=== PATIENT | female | born 1975 | race African-American/Black ===

== ENCOUNTER 2016-10-04 20:43 | Emergency (ER) | payer MEDICAID ==
[~2016-10-04] VITALS: Ht 170.2 cm; Wt 75.0 kg
[~2016-10-04 20:43] MED LIST: CEPH500 PO; IRONCAP2 PO; IRONTAB3 PO; LISI-586 PO
[2016-10-04 20:45] VITALS: BP 139/95; PULSE 105; RESP 16; TEMP 98.5; O2SAT 98
[2016-10-04] MEDS ORDERED: HYDR12.57 PO (21:26)
[2016-10-04] MEDS ORDERED: LISI-515 PO (21:26)
[2016-10-04] MEDS ORDERED: SODIUM CHLORIDE 0.9% FLUSH 10 ML FLUSH IVF PRN (21:30)
[2016-10-04] MEDS ORDERED: KETOROLAC TROMETHAMINE 30 MG/ML (IVP) VIAL IVP ONE (21:30)
[2016-10-04 21:59] LABS: AUTOMATED NEUTROPHIL # 6.6 TH/MM3 (1.8-7.7); BASOPHIL % 0.5 % (0.0-2.0); EOSINOPHIL # 0.1 TH/MM3 (0-0.4); EOSINOPHIL % 1.5 % (0.0-4.0); HEMATOCRIT 37.4 % (35.0-46.0); HEMO FLAGS DIFF FINAL; LYMPH % 15.4 % (9.0-44.0); LYMPHOCYTE # 1.3 TH/MM3 (1.0-4.8); MEAN CELL VOLUME 82.1 FL (80.0-100.0); MEAN CORPUSCULAR HEMOGLOBIN 26.4 PG (27.0-34.0); MEAN CORPUSCULAR HGB CONC 32.2 % (32.0-36.0); MONO % 4.3 % (0.0-8.0); NEUT % 78.3 % (16.0-70.0); PLATELET COUNT 316 TH/MM3 (150-450); RED BLOOD COUNT 4.55 MIL/MM3 (4.00-5.30); RED CELL DISTRIBUTION WIDTH 14.5 % (11.6-17.2); WHITE BLOOD COUNT 8.5 TH/MM3 (4.0-11.0)
[2016-10-04 22:10] LABS: APTT (PATIENT) 32.6 SEC (24.3-30.1); INTERNATIONAL NORMALIZED RATIO 0.9 RATIO; PROTHROMBIN TIME - PATIENT 9.7 SEC (9.8-11.6)
[2016-10-04 22:19] LABS: BICARBONATE 27.4 MEQ/L (21.0-32.0); POTASSIUM 3.1 MEQ/L (3.5-5.1)
[2016-10-04] MEDS ORDERED: MORPHINE SULFATE 8 MG/ML INJ IV PUSH ONE (22:30)
--- NOTE | 2016-10-04 22:39 | PD ---
HPI Chief Complaint: Pain: Acute or Chronic Time Seen by Provider: 21:30 Travel History International Travel<30 days: No Contact w/Intl Traveler<30days: No Traveled to known affect area: No History of Present Illness HPI Patient is a 40-year-old female presenting to emergency for evaluation of right arm pain and swelling. Patient states it started yesterday, it has gotten progressively more erythematous and painful. She reports the pain as a 9 out of 10, she denies any fever, chills, numbness, weakness. She does have a history of blood clots several years ago, she does not know if she was on blood thinners. Past medical history significant for hypertension, asthma, anemia. She denies any IV drug use. PFSH Past Medical History Hx Anticoagulant Therapy: No Anemia: Yes Asthma: Yes Cardiovascular Problems: Yes (HTN, Anemia) Diminished Hearing: No Hypertension: Yes Respiratory: Yes (Asthma) ?: Not LMP: 10/04/16 Menopausal: No : 2 Para: 2 Miscarriage: 0 : 0 Tubal Ligation: Yes (2003) Past Surgical History Abdominal Surgery: Yes (hernia at 10 months old) Thoracic Surgery: Yes (BACK SURGERY 2013) Social History Alcohol Use: No Tobacco Use: Yes (/2 PPD ) Substance Use: No Allergies-Medications (Allergen,Severity, Reaction): Coded Allergies: No Known Allergies (Verified , 10/04/16) Reported Meds & Prescriptions Reported Meds & Active Scripts Active Tramadol (Tramadol HCl) 50 Mg Tab 50 Mg PO Q6H PRN Florastor (Saccharomyces Boulardii) 250 Mg Cap 250 Mg PO BID 10 Days Clindamycin (Clindamycin HCl) 150 Mg Cap 300 Mg PO Q8HR 10 Days Reported Hydrochlorothiazide 12.5 Mg Cap 12.5 Mg PO DAILY Lisinopril 20 Mg Tab 20 Mg PO DAILY Review of Systems Except as stated in HPI: all other systems reviewed are Neg General / Constitutional: No: Fever, Chills Musculoskeletal: Positive: Edema, Pain Skin: Positive Change in Pigmentation Physical Exam Narrative GENERAL: Well-developed, well-nourished, alert female. Appears uncomfortable, in no acute distress. SKIN: Warm and dry. Right upper arm posteriorly with erythema and edema that extends distal to the right elbow, it is approximately 7 cm wide by 17 cm long. Warm to the touch, tender to palpation. No obvious lesions or excoriations. HEAD: Atraumatic. Normocephalic. EYES: Pupils equal and round. No scleral icterus. No injection or drainage. ENT: No nasal bleeding or discharge. Mucous membranes pink and moist. NECK: Trachea midline. No JVD. CARDIOVASCULAR: Regular rate and rhythm. RESPIRATORY: No accessory muscle use. Clear to auscultation. Breath sounds equal bilaterally. GASTROINTESTINAL: Abdomen soft, non-tender, nondistended. Hepatic and splenic margins not palpable. MUSCULOSKELETAL: Extremities without clubbing, cyanosis, or edema. No obvious deformities. NEUROLOGICAL: Awake and alert. No obvious cranial nerve deficits. Motor grossly within normal limits. Five out of 5 muscle strength in the arms and legs. Normal speech. PSYCHIATRIC: Appropriate mood and affect; insight and judgment normal. Data Data Last Documented VS Vital Signs Date Time Temp Pulse Resp B/P Pulse Ox O2 Delivery O2 Flow Rate FiO2 10/04/16 23:46 97 16 135/64 97 10/04/16 20:45 98.5 Orders Us Arm Venous Doppler (10/04/16 ) Basic Metabolic Panel (Bmp) (10/04/16 21:26) Complete Blood Count With Diff (10/04/16 21:26) Blood Culture (10/04/16 21:26) Ketorolac Inj (Toradol Inj) (10/04/16 21:30) Sodium Chloride 0.9% Flush (Ns Flush) (10/04/16 21:30) Act Partial Throm Time (Ptt) (10/04/16 21:26) Prothrombin Time / Inr (Pt) (10/04/16 21:26) Morphine Inj (Morphine Inj) (10/04/16 22:30) Ceftriaxone Inj (Rocephin Inj) (10/04/16 23:00) Clindamycin Inj (Cleocin Inj) (10/04/16 23:00) Potassium Chloride (Kcl) (10/04/16 23:00) Diphenhydramine Inj (Benadryl Inj) (10/04/16 23:00) Labs Laboratory Tests Test 10/04/16 21:44 White Blood Count 8.5 TH/MM3 Red Blood Count 4.55 MIL/MM3 Hemoglobin 12.0 GM/DL Hematocrit 37.4 % Mean Corpuscular Volume 82.1 FL Mean Corpuscular Hemoglobin 26.4 PG Mean Corpuscular Hemoglobin 32.2 % Concent Red Cell Distribution Width 14.5 % Platelet Count 316 TH/MM3 Mean Platelet Volume 8.1 FL Neutrophils (%) (Auto) 78.3 % Lymphocytes (%) (Auto) 15.4 % Monocytes (%) (Auto) 4.3 % Eosinophils (%) (Auto) 1.5 % Basophils (%) (Auto) 0.5 % Neutrophils # (Auto) 6.6 TH/MM3 Lymphocytes # (Auto) 1.3 TH/MM3 Monocytes # (Auto) 0.4 TH/MM3 Eosinophils # (Auto) 0.1 TH/MM3 Basophils # (Auto) 0.0 TH/MM3 CBC Comment DIFF FINAL Differential Comment Prothrombin Time 9.7 SEC Prothromb Time International 0.9 RATIO Ratio Activated Partial 32.6 SEC Thromboplast Time Sodium Level 138 MEQ/L Potassium Level 3.1 MEQ/L Chloride Level 105 MEQ/L Carbon Dioxide Level 27.4 MEQ/L Anion Gap 6 MEQ/L Blood Urea Nitrogen 14 MG/DL Creatinine 1.23 MG/DL Estimat Glomerular Filtration 58 ML/MIN Rate Random Glucose 98 MG/DL Calcium Level 8.6 MG/DL [facility] Medical Decision Making Medical Screen Exam Complete: Yes Emergency Medical Condition: Yes Interpretation(s) Vital Signs Date Time Temp Pulse Resp B/P Pulse Ox O2 Delivery O2 Flow Rate FiO2 10/04/16 21:23 16 10/04/16 20:45 98.5 105 16 139/95 98 Differential Diagnosis Cellulitis versus DVT versus allergic reaction versus other Narrative Course Patient is a 40-year-old female presenting for evaluation of 2 days of right arm swelling, pain and redness. Patient's physical examination appears most consistent with cellulitis however due to her history of DVT and ultrasound of the right upper extremity is ordered and pending. Patient's vital signs are stable. CBC unremarkable, lactic acid is normal, chemistry with potassium 3.1, creatinine 1.23. Patient was given 1 L of IV fluids in the emergency department , clindamycin 900 mg IV 1 dose given. Ultrasound right upper extremity is negative for DVT. Potassium replacement ordered. Blood cultures pending. Area of induration was marked, patient was given strict return precautions. She was advised to return to the emergency department in 24 hours for reevaluation. Patient verbalized understanding of these instructions. Diagnosis Primary Impression: Cellulitis of arm, right Referrals: Primary Care Physician 1 day Patient Instructions: Cellulitis (DC), General Instructions Additional Instructions: Return to emergency department in 48 hours for reevaluation Return to emergency department sooner for any new or worsening symptoms Complete full course of antibiotics as prescribed Med/Other Pt SpecificInfo: Prescription(s) given Scripts Tramadol 50 Mg Tab50 Mg PO Q6H PRN (PAIN) #12 TAB Ref 0 Prov:Stewart Montoya MD 10/04/16 Saccharomyces Boulardii (Florastor)250 Mg [id number] Mg PO BID 10 Days Ref 0 Prov:Ekta Sanz 10/04/16 Clindamycin 150 Mg [id number] Mg PO Q8HR 10 Days Ref 0 Prov:Ekta Sanz 10/04/16 Disposition: 01 DISCHARGE HOME Condition: Stable Ekta Sanz Oct 04, 2016 22:39
--- NOTE | 2016-10-04 22:43 | RADRPT ---
EXAM DATE/TIME: 10/04/2016 22:10 [place] COMPARISON: No previous studies available for comparison. INDICATIONS : Right arm swelling. MEDICAL HISTORY : Hypertension. Anemia. SURGICAL HISTORY : Tubal ligation. Back surgery. Hernia repair. ENCOUNTER: Initial ACUITY: 1 day PAIN SCORE: 10/10 LOCATION: Right arm. FINDINGS: There is spontaneous flow documented in the brachial, basilic, cephalic, axillary, and subclavian vei ns. The vessels are compressible and augmentation response is documented. No filling defects are se en. The flow is phasic with respiration. Direction of flow in the jugular vein is caudal. CONCLUSION: Normal examination. Lucas Brenner MD on October 04, 2016 at 22:41 Board Certified Radiologist. This report was verified electronically.
[2016-10-04] MEDS ORDERED: FLOR250C PO (22:52)
[2016-10-04] MEDS ORDERED: CLIN1CAP5 PO (22:52)
[2016-10-04] MEDS ORDERED: TRAM50TA PO (22:53)
[2016-10-04] MEDS ORDERED: diphenhydrAMINE HCL 50 MG/ML VIAL IV PUSH ONE (23:00)
[2016-10-04] MEDS ORDERED: POTASSIUM CHLORIDE 10 MEQ CONTROLLED RELEASE TAB PO ONE (23:00)
[2016-10-04] MEDS ORDERED: CLINDAMYCIN INJ 900 MG in SODIUM CHLORIDE 0.9% INJ 100 ML IV ONE (23:00)
[2016-10-04] MEDS ORDERED: cefTRIAXone INJ 1,000 MG in SODIUM CHLORIDE 0.9% INJ 100 ML IV ONE (23:00)
--- NOTE | 2016-10-04 23:18 | PD ---
Data Data Last Documented VS Vital Signs Date Time Temp Pulse Resp B/P Pulse Ox O2 Delivery O2 Flow Rate FiO2 10/04/16 21:23 16 10/04/16 20:45 98.5 105 139/95 98 Orders Us Arm Venous Doppler (10/04/16 ) Basic Metabolic Panel (Bmp) (10/04/16 21:26) Complete Blood Count With Diff (10/04/16 21:26) Blood Culture (10/04/16 21:26) Ketorolac Inj (Toradol Inj) (10/04/16 21:30) Sodium Chloride 0.9% Flush (Ns Flush) (10/04/16 21:30) Act Partial Throm Time (Ptt) (10/04/16 21:26) Prothrombin Time / Inr (Pt) (10/04/16 21:26) Morphine Inj (Morphine Inj) (10/04/16 22:30) Ceftriaxone Inj (Rocephin Inj) (10/04/16 23:00) Clindamycin Inj (Cleocin Inj) (10/04/16 23:00) Potassium Chloride (Kcl) (10/04/16 23:00) Diphenhydramine Inj (Benadryl Inj) (10/04/16 23:00) Labs Laboratory Tests Test 10/04/16 21:44 White Blood Count 8.5 TH/MM3 Red Blood Count 4.55 MIL/MM3 Hemoglobin 12.0 GM/DL Hematocrit 37.4 % Mean Corpuscular Volume 82.1 FL Mean Corpuscular Hemoglobin 26.4 PG Mean Corpuscular Hemoglobin 32.2 % Concent Red Cell Distribution Width 14.5 % Platelet Count 316 TH/MM3 Mean Platelet Volume 8.1 FL Neutrophils (%) (Auto) 78.3 % Lymphocytes (%) (Auto) 15.4 % Monocytes (%) (Auto) 4.3 % Eosinophils (%) (Auto) 1.5 % Basophils (%) (Auto) 0.5 % Neutrophils # (Auto) 6.6 TH/MM3 Lymphocytes # (Auto) 1.3 TH/MM3 Monocytes # (Auto) 0.4 TH/MM3 Eosinophils # (Auto) 0.1 TH/MM3 Basophils # (Auto) 0.0 TH/MM3 CBC Comment DIFF FINAL Differential Comment Prothrombin Time 9.7 SEC Prothromb Time International 0.9 RATIO Ratio Activated Partial 32.6 SEC Thromboplast Time Sodium Level 138 MEQ/L Potassium Level 3.1 MEQ/L Chloride Level 105 MEQ/L Carbon Dioxide Level 27.4 MEQ/L Anion Gap 6 MEQ/L Blood Urea Nitrogen 14 MG/DL Creatinine 1.23 MG/DL Estimat Glomerular Filtration 58 ML/MIN Rate Random Glucose 98 MG/DL Calcium Level 8.6 MG/DL MDM Supervised Visit with SIMRAN: Yes Narrative Course The history, exam, and medical decision-making in the associated mid-level provider note were completed with my assistance. I reviewed and agree with the findings presented. I attest that I had a [id number] encounter with the patient on the same day, and personally performed and documented my assessment and findings in the medical record. *My assessment and Findings: Is a 40 year-old woman presents to the emergency department. He was a cellulitis in the right arm. Is fairly extensive. She is induration and tenderness on the underside of the arm. No fever. No white count. Negative for DVT. No clear precipitant. She is given IV antibiotics will bring her back for 24-hour wound check to skin how quickly this came on. I'll see any crepitance or other evidence of necrotizing acute soft tissue infection. Diagnosis Primary Impression: Cellulitis of arm, right Referrals: Primary Care Physician 1 day Patient Instructions: General Instructions, Cellulitis (DC) Additional Instruction: Return to emergency department in 48 hours for reevaluation Return to emergency department sooner for any new or worsening symptoms Complete full course of antibiotics as prescribed Scripts Tramadol 50 Mg Tab50 Mg PO Q6H PRN (PAIN) #12 TAB Ref 0 Prov:Stewart Montoya MD 10/04/16 Saccharomyces Boulardii (Florastor)250 Mg Ocm191 Mg PO BID 10 Days Ref 0 Prov:Ekta Snaz 10/04/16 Clindamycin 150 Mg Vin667 Mg PO Q8HR 10 Days Ref 0 Prov:Ekta Sanz 10/04/16 Disposition: 01 DISCHARGE HOME Condition: Stable Stewart Montoya MD Oct 04, 2016 23:18
[2016-10-04 23:46] VITALS: BP 135/64
== END 2016-10-05 00:05 | disposition home or self-care (01) ==
LOC: NEPE 20:43
DX: L03.113 Cellulitis of right upper limb (principal)
CPT/HCPCS: 80048; 85025; 85610; 85730; 87040; 93971; 96374; 96375; 99285; J1200; J1885; J2270

== ENCOUNTER 2016-10-07 18:57 | Emergency (ER) | payer MEDICAID ==
[~2016-10-07] VITALS: Ht 170.2 cm; Wt 76.0 kg
[~2016-10-07 18:57] MED LIST changes: -CEPH500 PO; +CLIN1CAP5 PO; +FLOR250C PO; +HYDR12.57 PO; -IRONCAP2 PO; -IRONTAB3 PO; +LISI-515 PO; -LISI-586 PO; +TRAM50TA PO
[2016-10-07 19:01] VITALS: BP 117/79; PULSE 68; RESP 15; TEMP 98.2; O2SAT 98
--- NOTE | 2016-10-07 19:12 | PD ---
Physical Exam Time Seen by Provider: 19:10 Narrative 40 y/o female was dx with cellulitis RUE 10/04 and is here for reevaluation. She says symptoms are improving. Vital signs reviewed. Seen at triage desk. Awaiting bed placement. Data Data Last Documented VS Vital Signs Date Time Temp Pulse Resp B/P Pulse Ox O2 Delivery O2 Flow Rate FiO2 10/07/16 19:01 98.2 68 15 117/79 98 Room Air [facility] Medical Record Reviewed: Yes Supervised Visit with SIMRAN: No Neto Hernandez Oct 07, 2016 19:11
--- NOTE | 2016-10-07 19:25 | PD ---
HPI Chief Complaint: Skin Problem Time Seen by Provider: 19:21 Travel History International Travel<30 days: No Contact w/Intl Traveler<30days: No Traveled to known affect area: No History of Present Illness HPI Patient in for reevaluation of right arm cellulitis. Patient she started antibiotics yesterday after receiving IV antibiotics in the emergency department. Patient reports great improvement of her symptoms. States pain, edema, and erythematous have all improved. She denies any fevers, nausea, vomiting, chest pain or shortness of breath, or headaches. Denies anything making it worse. PFSH Past Medical History Hx Anticoagulant Therapy: No Anemia: Yes Asthma: Yes Cardiovascular Problems: Yes (HTN, Anemia) Diminished Hearing: No Hypertension: Yes Respiratory: Yes (Asthma) ?: Not Menopausal: No : 2 Para: 2 Miscarriage: 0 : 0 Tubal Ligation: Yes (2003) Past Surgical History Abdominal Surgery: Yes (hernia at 10 months old) Thoracic Surgery: Yes (BACK SURGERY 2013) Social History Alcohol Use: No Tobacco Use: Yes (03/22 PPD ) Substance Use: No Allergies-Medications (Allergen,Severity, Reaction): Coded Allergies: No Known Allergies (Verified , 10/04/16) Reported Meds & Prescriptions Reported Meds & Active Scripts Active Tramadol (Tramadol HCl) 50 Mg Tab 50 Mg PO Q6H PRN Florastor (Saccharomyces Boulardii) 250 Mg Cap 250 Mg PO BID 10 Days Clindamycin (Clindamycin HCl) 150 Mg Cap 300 Mg PO Q8HR 10 Days Reported Hydrochlorothiazide 12.5 Mg Cap 12.5 Mg PO DAILY Lisinopril 20 Mg Tab 20 Mg PO DAILY Review of Systems Except as stated in HPI: all other systems reviewed are Neg Physical Exam Narrative GENERAL: Well-developed, well nourished, in no acute distress, and non-ill appearing. SKIN: Focused skin assessment warm and dry. Mild erythematous and febrile right posterior forearm. There is no induration, fluctuation, tenderness, or crepitus. HEAD: Atraumatic. Normocephalic. EYES: Pupils equal and round. EOMI. No scleral icterus. No injection or drainage. ENT: No nasal bleeding or discharge. Mucous membranes pink and moist. NECK: Trachea midline. Supple. No nuclear rigidity. CARDIOVASCULAR: Radial pulses 2+, intact, and equal bilaterally. Capillary refill less than 2 seconds. RESPIRATORY: No accessory muscle use. No respiratory distress. MUSCULOSKELETAL: No obvious deformities. No clubbing. No cyanosis. No edema. Full range of motion. NEUROLOGICAL: Awake and alert. No obvious cranial nerve deficits. Motor grossly within normal limits. Normal speech. PSYCHIATRIC: Appropriate mood and affect; insight and judgment normal. Data Data Last Documented VS Vital Signs Date Time Temp Pulse Resp B/P Pulse Ox O2 Delivery O2 Flow Rate FiO2 10/07/16 19:01 98.2 68 15 117/79 98 Room Air MDM Medical Decision Making Medical Screen Exam Complete: Yes Emergency Medical Condition: Yes Differential Diagnosis Abscess, cyanosis, wound recheck, other Narrative Course The patient has cellulitis is resolving. There is no evidence of necrotizing fasciitis at this time. There is no evidence of abscess. There is no evidence of local joint space involvement. There is no evidence of deep venous thrombosis. The patient will be discharged and instructed to continue antibiotics. The patient was given signs and symptoms warnings for worsening infection, such as spreading of redness, increasing pain, and/or swelling, associated heat, or fever and instructed to return immediately if these signs or symptoms worsen. The patient is to follow up with physician for recheck or return here if worsens or as needed. The patient agrees with plan. Patient in no obvious distress upon re-evaluation. Any questions/concerns in reference to patient diagnosis/condition discussed and clarified prior to patient's discharge. Reinforced sheer importance of close follow up with patient 's primary physician or primary care clinic. Instructed patient to return to ED immediately, if symptoms return/worsen. Pt showed understanding of above instructions. Further instructions and recommendations were detailed in discharge paperwork. Pt ambulated without difficulty out of ED at discharge. Diagnosis Primary Impression: Encounter for wound re-check Additional Impression: Cellulitis of arm, right Referrals: [facility] Patient Instructions: Cellulitis (ED), General Instructions Additional Instructions: Follow-up with your primary care physician in 3-5 days for reevaluation. Take all medication as previously prescribed. Return to the emergency department if symptoms get worse, fevers, unable tolerate fluids, chest pain, shortness of breath, or for other emergent concerns. Disposition: 01 DISCHARGE HOME Condition: Stable Joey Pepe Oct 07, 2016 19:25
== END 2016-10-07 19:38 | disposition home or self-care (01) ==
LOC: NEPK 18:57
DX: L03.113 Cellulitis of right upper limb (principal)
CPT/HCPCS: 99281

== ENCOUNTER 2017-01-08 23:50 | Observation (INO) | payer MEDICAID ==
[~2017-01-08] VITALS: Ht 170.2 cm; Wt 83.0 kg
[2017-01-08 23:51] VITALS: BP 109/64; PULSE 165; RESP 18; TEMP 99.2; O2SAT 97
[2017-01-09] VITALS (9 sets, daily range): BP systolic 132–161; BP diastolic 80–106; PULSE 68–140; RESP 16–22; TEMP 97.9–98.6; O2SAT 96–100
[2017-01-09] MEDS ORDERED: SODIUM CHLOR 0.9% 1000 ML INJ 1,000 ML IV ONE
[2017-01-09] MEDS ORDERED: SODIUM CHLORIDE 0.9% FLUSH 10 ML FLUSH IVF PRN
--- NOTE | 2017-01-09 00:03 | PD ---
HPI Chief Complaint: palpitations, presyncope Time Seen by Provider: 23:56 Travel History International Travel<30 days: No Contact w/Intl Traveler<30days: No History of Present Illness HPI Patient is a 41-year-old female with history of high blood pressure anemia and rapid heart rate events in the past presents emergency Department with palpitations for the past 30-45 minutes. She states that this happened to her once before. She states that she also has a history of anemia and heavy bleeding. She's had to have blood transfusions in the past. States his symptoms are very uncomfortable but she also feels like she was going to pass out. Denies any fever denies any cough congestion. Denies any history of heart attack. PFSH Past Medical History Hx Anticoagulant Therapy: No Anemia: Yes Asthma: Yes Cardiovascular Problems: Yes (HTN, Anemia) Diminished Hearing: No Hypertension: Yes Respiratory: Yes (Asthma) Menopausal: No : 2 Para: 2 Miscarriage: 0 : 0 Tubal Ligation: Yes (2003) Past Surgical History Abdominal Surgery: Yes (hernia at 10 months old) Thoracic Surgery: Yes (BACK SURGERY 2013) Social History Alcohol Use: No Tobacco Use: No Substance Use: No Allergies-Medications (Allergen,Severity, Reaction): Coded Allergies: No Known Allergies (Verified , 01/09/17) Reported Meds & Prescriptions Reported Meds & Active Scripts Active Reported Hydrochlorothiazide 12.5 Mg Cap 12.5 Mg PO DAILY Lisinopril 20 Mg Tab 20 Mg PO DAILY Review of Systems Except as stated in HPI: all other systems reviewed are Neg Physical Exam Narrative GENERAL: Well-developed well-nourished no obvious distress SKIN: Focused skin assessment warm/dry. HEAD: Atraumatic. Normocephalic. EYES: Pupils equal and round. No scleral icterus. No injection or drainage. ENT: No nasal bleeding or discharge. Mucous membranes pink and moist. NECK: Trachea midline. No JVD. CARDIOVASCULAR: Significantly tachycardic with regular rhythm.. No murmur appreciated. 2+ bilateral equal pulses in all 4 extremities. RESPIRATORY: No accessory muscle use. Clear to auscultation. Breath sounds equal bilaterally. GASTROINTESTINAL: Abdomen soft, non-tender, nondistended. Hepatic and splenic margins not palpable. MUSCULOSKELETAL: No obvious deformities. No clubbing. No cyanosis. No edema. NEUROLOGICAL: Awake and alert. No obvious cranial nerve deficits. Motor grossly within normal limits. Normal speech. PSYCHIATRIC: Appropriate mood and affect; insight and judgment normal. Data Data Last Documented VS Vital Signs Date Time Temp Pulse Resp B/P (MAP) Pulse Ox O2 Delivery O2 Flow Rate FiO2 01/09/17 01:39 78 16 160/88 (112) 100 Room Air 01/09/17 00:03 98.6 Orders Orders Electrocardiogram (01/08/17 23:59) Ckmb (Isoenzyme) Profile (01/08/17 23:59) Complete Blood Count With Diff (01/08/17 23:59) Comprehensive Metabolic Panel (01/08/17 23:59) D-Dimer (01/08/17 23:59) Magnesium (Mg) (01/08/17 23:59) Prothrombin Time / Inr (Pt) (01/08/17 23:59) Act Partial Throm Time (Ptt) (01/08/17 23:59) Troponin I (01/08/17 23:59) Chest, Single Ap (01/08/17 23:59) Ecg Monitoring (01/08/17 23:59) Iv Access Insert/Monitor (01/08/17 23:59) Oximetry (01/08/17 23:59) Oxygen Administration (01/08/17 23:59) Sodium Chloride 0.9% Flush (Ns Flush) (01/09/17 00:00) Sodium Chlor 0.9% 1000 Ml Inj (Ns 1000 M (01/09/17 00:00) Thyroid Stimulating Hormone (01/08/17 23:59) Propranolol Inj (Inderal Inj) (01/09/17 01:15) Admit Order (Ed Use Only) (01/09/17 ) Aspirin Chew (Aspirin Chew) (01/09/17 02:30) Place In Observation (01/09/17 ) Vital Signs (Adult) Q4H (01/09/17 02:22) Activity Oob Ad Jaz (01/09/17 02:22) Dental Sales Representative / Telemetry .CONTINUOUS (01/09/17 02:22) Diet Regular Basic (01/09/17 Breakfast) Sodium Chlor 0.9% 1000 Ml Inj (Ns 1000 M (01/09/17 02:22) Sodium Chloride 0.9% Flush (Ns Flush) (01/09/17 02:30) Sodium Chloride 0.9% Flush (Ns Flush) (01/09/17 09:00) Ondansetron Inj (Zofran Inj) (01/09/17 02:30) Comprehensive Metabolic Panel (01/09/17 06:00) Complete Blood Count With Diff (01/09/17 06:00) Troponin I (01/09/17 06:00) Troponin I (01/09/17 12:00) Scd Bilateral/Knee High ENID.BID (01/09/17 02:22) Jhonatan Bilateral/Knee High ENID.QSHIFT (01/09/17 02:24) Acetaminophen (Tylenol) (01/09/17 02:30) Acetamin-Hydrocod 325-5 Mg ([place] 5-325 (01/09/17 02:30) Acetamin-Hydrocod 325-10 Mg ([place] 10-32 (01/09/17 02:30) Docusate Sodium-Senna (Shelbi-Colace) (01/09/17 09:00) Magnesium Hydroxide Liq (Milk Of Magnesi (01/09/17 02:30) Sennosides (Senokot) (01/09/17 02:30) Bisacodyl Supp (Dulcolax Supp) (01/09/17 02:30) Lactulose Liq (Lactulose Liq) (01/09/17 02:30) Potassium Chloride (Kcl) (01/09/17 02:30) Aspirin Ec (Ecotrin Ec) (01/09/17 09:00) Metoprolol Tartrate (Lopressor) (01/09/17 09:00) Echo 2d Comp With Doppler (01/09/17 ) Lipid Profile (01/09/17 06:00) Urinalysis - C+S If Indicated (01/09/17 02:22) Drug Screen, Random Urine (01/09/17 02:22) Labs Laboratory Tests Test 01/08/17 23:59 White Blood Count 7.1 TH/MM3 Red Blood Count 4.36 MIL/MM3 Hemoglobin 10.4 GM/DL Hematocrit 32.8 % Mean Corpuscular Volume 75.2 FL Mean Corpuscular Hemoglobin 23.9 PG Mean Corpuscular Hemoglobin Concent 31.8 % Red Cell Distribution Width 17.3 % Platelet Count 301 TH/MM3 Mean Platelet Volume 8.6 FL Neutrophils (%) (Auto) 72.3 % Lymphocytes (%) (Auto) 19.9 % Monocytes (%) (Auto) 5.9 % Eosinophils (%) (Auto) 1.0 % Basophils (%) (Auto) 0.9 % Neutrophils # (Auto) 5.1 TH/MM3 Lymphocytes # (Auto) 1.4 TH/MM3 Monocytes # (Auto) 0.4 TH/MM3 Eosinophils # (Auto) 0.1 TH/MM3 Basophils # (Auto) 0.1 TH/MM3 CBC Comment DIFF FINAL Differential Comment Prothrombin Time 10.9 SEC Prothromb Time International Ratio 1.0 RATIO Activated Partial Thromboplast Time 30.5 SEC D-Dimer Quantitative (PE/DVT) 0.43 MG/L FEU Blood Urea Nitrogen 7 MG/DL Creatinine 1.23 MG/DL Random Glucose 108 MG/DL Total Protein 7.7 GM/DL Albumin 3.5 GM/DL Calcium Level 8.7 MG/DL Magnesium Level 1.9 MG/DL Alkaline Phosphatase 68 U/L Aspartate Amino Transf (AST/SGOT) 10 U/L Alanine Aminotransferase (ALT/SGPT) 14 U/L Total Bilirubin 0.3 MG/DL Sodium Level 139 MEQ/L Potassium Level 3.0 MEQ/L Chloride Level 108 MEQ/L Carbon Dioxide Level 20.7 MEQ/L Anion Gap 10 MEQ/L Estimat Glomerular Filtration Rate 58 ML/MIN Total Creatine Kinase 86 U/L Troponin I 0.06 NG/ML Thyroid Stimulating Hormone 3rd Gen 2.440 uIU/ML MDM Medical Decision Making Medical Screen Exam Complete: Yes Emergency Medical Condition: Yes Differential Diagnosis Tachydysrhythmia, SVT, sinus tachycardia, V. tach, ACS seems unlikely, PE. Narrative Course Patient roomed emergency department, found to be tachycardic in the 140s to 160s appears to be sinus tachycardia. Fluid challenge unsuccessful, was given Inderal 1 mg IV. TSH normal, lecture lites within normal limits, d-dimer negative, patient does have a minimally elevated troponin to 0.06. Given a presyncopal symptoms a tachydysrhythmia as well as her elevated troponin I think she would do best to be opts for further arrhythmia or symptoms. Patient was discussed with Dr. Orozco who is agreeable. Diagnosis Primary Impression: Tachycardia Additional Impressions: Pre-syncope Elevated troponin Admitting Information Admitting Physician Requests: Observation Condition: Stable Vin Ceja MD Jan 09, 2017 00:03
[2017-01-09 00:32] LABS: AUTOMATED NEUTROPHIL # 5.1 TH/MM3 (1.8-7.7); BASOPHIL # 0.1 TH/MM3 (0-0.2); BASOPHIL % 0.9 % (0.0-2.0); EOSINOPHIL # 0.1 TH/MM3 (0-0.4); HEMATOCRIT 32.8 % (35.0-46.0); HEMO FLAGS DIFF FINAL; LYMPH % 19.9 % (9.0-44.0); LYMPHOCYTE # 1.4 TH/MM3 (1.0-4.8); MEAN CELL VOLUME 75.2 FL (80.0-100.0); MEAN CORPUSCULAR HEMOGLOBIN 23.9 PG (27.0-34.0); MEAN CORPUSCULAR HGB CONC 31.8 % (32.0-36.0); MONO % 5.9 % (0.0-8.0); NEUT % 72.3 % (16.0-70.0); PLATELET COUNT 301 TH/MM3 (150-450); RED BLOOD COUNT 4.36 MIL/MM3 (4.00-5.30); RED CELL DISTRIBUTION WIDTH 17.3 % (11.6-17.2); WHITE BLOOD COUNT 7.1 TH/MM3 (4.0-11.0)
--- NOTE | 2017-01-09 00:37 | RADRPT ---
EXAM DATE/TIME: 01/09/2017 00:17 [facility] COMPARISON: CHEST SINGLE AP, October 08, 2015, 13:58. INDICATIONS : Shortness of breath. MEDICAL HISTORY : Asthma SURGICAL HISTORY : None. ENCOUNTER: Initial ACUITY: 1 day PAIN SCORE: 0/10 LOCATION: Bilateral chest FINDINGS: A single view of the chest demonstrates the lungs to be symmetrically aerated without evidence of mas s, infiltrate or effusion. The cardiomediastinal contours are unremarkable. Osseous structures are intact. CONCLUSION: No acute disease. Shimon Shaver MD on January 09, 2017 at 0:35 Board Certified Radiologist. This report was verified electronically.
[2017-01-09 00:47] LABS: ANION GAP 10 MEQ/L (5-15); AST (GOT) 10 U/L (15-37); BICARBONATE 20.7 MEQ/L (21.0-32.0); BLOOD UREA NITROGEN 7 MG/DL (7-18); CHLORIDE 108 MEQ/L (98-107); GLOMERULAR FILTRATION RATE 58 ML/MIN (>89); MAGNESIUM 1.9 MG/DL (1.5-2.5); SODIUM (NA) 139 MEQ/L (136-145)
[2017-01-09 00:51] LABS: APTT (PATIENT) 30.5 SEC (24.3-30.1); PROTHROMBIN TIME - PATIENT 10.9 SEC (9.8-11.6)
[2017-01-09 00:58] LABS: ALKALINE PHOSPHATASE 68 U/L (45-117); ALT (GPT) 14 U/L (10-53); TOTAL BILIRUBIN ADULT 0.3 MG/DL (0.2-1.0)
[2017-01-09 01:08] LABS: CREATINE KINASE 86 U/L (26-192)
[2017-01-09] MEDS ORDERED: PROPRANOLOL INJ 1 MG/ML AMP IV PUSH ONE (01:15)
[2017-01-09] MEDS ORDERED: SODIUM CHLOR 0.9% 1000 ML INJ 1,000 ML IV SCH (02:22)
[2017-01-09] MEDS ORDERED: ASPIRIN 81 MG CHEW TAB CHEW ONE (02:30)
[2017-01-09] MEDS ORDERED: ONDANSETRON HCL 4 MG/2 ML VIAL IVP PRN (02:30)
[2017-01-09] MEDS ORDERED: POTASSIUM CHLORIDE 20 MEQ CONTROLLED RELEASE TAB PO ONE (02:30)
[2017-01-09] MEDS ORDERED: ACETAMINOPHEN/HYDROcodone 325 MG/5 MG TAB PO PRN (02:30)
[2017-01-09] MEDS ORDERED: SENNOSIDES 8.6 MG TAB PO PRN (02:30)
[2017-01-09] MEDS ORDERED: SODIUM CHLORIDE 0.9% FLUSH 10 ML FLUSH IV FLUSH PRN (02:30)
[2017-01-09] MEDS ORDERED: LACTULOSE SYRUP 20 GM/30 ML CUP PO PRN (02:30)
[2017-01-09] MEDS ORDERED: MAGNESIUM HYDROXIDE SUSP 30 ML CUP PO PRN (02:30)
[2017-01-09] MEDS ORDERED: ACETAMINOPHEN 325 MG TAB PO PRN (02:30)
[2017-01-09] MEDS ORDERED: BISACODYL 10 MG SUPP RECTAL PRN (02:30)
[2017-01-09] MEDS ORDERED: ACETAMINOPHEN/HYDROcodone 325 MG/10 MG TAB PO PRN (02:30)
[2017-01-09] MEDS ORDERED: PILL SPLITTER OTHER PRN (02:45)
--- NOTE | 2017-01-09 02:51 | HHI.HP ---
[facility] Service [facility] Primary Care Physician No Primary Care Physician Admission Diagnosis Tachydysrhythmia, Elevated Troponin Diagnoses: (1) Palpitations Diagnosis: Principal (2) Chest pain Diagnosis: Principal (3) Elevated troponin Diagnosis: Principal (4) Hypokalemia Diagnosis: Principal (5) Renal insufficiency Diagnosis: Principal (6) Tobacco abuse Diagnosis: Principal Travel History International Travel<30 Days: No Contact w/Intl Traveler <30 Da: No Traveled to Known Affected Are: No History of Present Illness This is a 41-year-old female with a PMH of HTN, Asthma and Tobacco Abuse who presented to the ER with complaints of acute onset of palpitations and chest pain starting approx 1hr prior to arrival. Reports associated lightheadedness. No h/o similar symptoms. Denies fever, chills, nausea, vomiting or diarrhea. On arrival, HR 165, BP 109/64, O2 sat 97% on RA, Temp 99.2. S/p Propranolol IV, BP 160/88, HR 78. No c/o chest pain or palpitations at this time. CBC essentially baseline. K+ 3.0. Creatinine 1.23, producing 1.23 on 10/04/16. Troponin 0.06. EKG with no acute ischemia. INR 1.0. D-dimer negative. CXR with no acute findings. Review of Systems Except as stated in HPI: all other systems reviewed are Neg ROS: 14 point review of systems otherwise negative. Past Family Social History Past Medical History PMH: HTN, Asthma and Tobacco Abuse Past Surgical History PAST SURGICAL HISTORY: Hernia Repair, Back Surgery, Tubal Ligation Allergies: Coded Allergies: No Known Allergies (Verified , 01/09/17) Family History PAST FAMILY HISTORY: Reviewed. No h/o DM or CAD Social History PAST SOCIAL HISTORY: Negative for alcohol or drugs. Positive for tobacco. Physical Exam Vital Signs Vital Signs Date Time Temp Pulse Resp B/P (MAP) Pulse Ox O2 Delivery O2 Flow Rate FiO2 01/09/17 01:39 78 16 160/88 (112) 100 Room Air 01/09/17 01:20 140 20 161/106 (124) 100 01/09/17 00:57 138 16 99 Room Air 01/09/17 00:06 138 22 99 Room Air 01/09/17 00:06 100 Room Air 01/09/17 00:03 98.6 134 22 132/80 (97) 99 01/08/17 23:51 99.2 165 18 109/64 (79) 97 Room Air Physical Exam PE: GENERAL: Very pleasant middle-aged black female in no acute distress. Resting comfortably. HEENT: PERRLA, EOMI. No scleral icterus or conjunctival pallor. No lid lag or facial droop. CARDIOVASCULAR: Regular rate and rhythm. No obvious murmurs to auscultation. No chest tenderness to palpation. RESPIRATORY: No obvious rhonchi or wheezing. Clear to auscultation. Breath sounds equal bilaterally. GASTROINTESTINAL: Abdomen soft, non-tender, nondistended. BS normal. MUSCULOSKELETAL: Extremities without clubbing, cyanosis, or edema. No obvious deformities. NEUROLOGICAL: Awake, alert and oriented x4. No focal neurologic deficits. Moving both upper and lower extremities spontaneously. Laboratory Laboratory Tests Test 01/08/17 23:59 White Blood Count 7.1 Red Blood Count 4.36 Hemoglobin 10.4 Hematocrit 32.8 Mean Corpuscular Volume 75.2 Mean Corpuscular Hemoglobin 23.9 Mean Corpuscular Hemoglobin Concent 31.8 Red Cell Distribution Width 17.3 Platelet Count 301 Mean Platelet Volume 8.6 Neutrophils (%) (Auto) 72.3 Lymphocytes (%) (Auto) 19.9 Monocytes (%) (Auto) 5.9 Eosinophils (%) (Auto) 1.0 Basophils (%) (Auto) 0.9 Neutrophils # (Auto) 5.1 Lymphocytes # (Auto) 1.4 Monocytes # (Auto) 0.4 Eosinophils # (Auto) 0.1 Basophils # (Auto) 0.1 CBC Comment DIFF FINAL Differential Comment Prothrombin Time 10.9 Prothromb Time International Ratio 1.0 Activated Partial Thromboplast Time 30.5 D-Dimer Quantitative (PE/DVT) 0.43 Blood Urea Nitrogen 7 Creatinine 1.23 Random Glucose 108 Total Protein 7.7 Albumin 3.5 Calcium Level 8.7 Magnesium Level 1.9 Alkaline Phosphatase 68 Aspartate Amino Transf (AST/SGOT) 10 Alanine Aminotransferase (ALT/SGPT) 14 Total Bilirubin 0.3 Sodium Level 139 Potassium Level 3.0 Chloride Level 108 Carbon Dioxide Level 20.7 Anion Gap 10 Estimat Glomerular Filtration Rate 58 Total Creatine Kinase 86 Troponin I 0.06 Thyroid Stimulating Hormone 3rd Gen 2.440 Result Diagram: 01/08/17235801/08/172358 Ama [facility]: No/Low Risk (score <= 1) Caprini Risk Assessment Model Point Value = 1 Point Value = 2 Point Value = 3 Point Value = 5 Age 41-60 Minor surgery BMI > 25 kg/m2 Swollen legs Varicose veins or History of unexplained or recurrent spontaneous Oral contraceptives or hormone replacement Sepsis (< 1 month) Serious lung disease, including pneumonia (< 1 month) Abnormal pulmonary function Acute myocardial infarction Congestive heart failure (< 1 month) History of inflammatory bowel disease Medical patient at bed rest Age 61-74 Arthroscopic surgery Major open surgery (> 45 min) Laparoscopic surgery (> 45 min) Malignancy Confined to bed (> 72 hours) Immobilizing plaster cast Central venous access Age >= 75 History of VTE Family history of VTE Factor V Leiden Prothrombin [id number] Lupus anticoagulant Anticardiolipin antibodies Elevated serum homocysteine Heparin-induced thrombocytopenia Other congenital or acquired thrombophilia Stroke (< 1 month) Elective arthroplasty Hip, pelvis, or leg fracture Acute spinal cord injury (< 1 month) Prophylaxis Regimen Total Risk Factor Score Risk Level Prophylaxis Regimen 0-1 Low Early ambulation 2 Moderate Order ONE of the following: *Sequential Compression Device (SCD) *Heparin 5000 units SQ BID 3-4 Higher Order ONE of the following medications: *Heparin 5000 units SQ TID *Enoxaparin/Lovenox 40 mg SQ daily (WT < 150 kg, CrCl > 30 mL/min) *Enoxaparin/Lovenox 30 mg SQ daily (WT < 150 kg, CrCl > 10-29 mL/min) *Enoxaparin/Lovenox 30 mg SQ BID (WT < 150 kg, CrCl > 30 mL/min) AND/OR *Sequential Compression Device (SCD) 5 or more Highest Order ONE of the following medications: *Heparin 5000 units SQ TID (Preferred with Epidurals) *Enoxaparin/Lovenox 40 mg SQ daily (WT < 150 kg, CrCl > 30 mL/min) *Enoxaparin/Lovenox 30 mg SQ daily (WT < 150 kg, CrCl > 10-29 mL/min) *Enoxaparin/Lovenox 30 mg SQ BID (WT < 150 kg, CrCl > 30 mL/min) AND *Sequential Compression Device (SCD) Assessment and Plan Problem List: (1) Palpitations ICD Code: R00.2 - Palpitations (2) Chest pain ICD Code: R07.9 - Chest pain, unspecified (3) Elevated troponin ICD Code: R74.8 - Abnormal levels of other serum enzymes Status: Acute (4) Renal insufficiency ICD Code: N28.9 - Disorder of kidney and ureter, unspecified (5) Hypokalemia ICD Code: E87.6 - Hypokalemia (6) Tobacco abuse ICD Code: Z72.0 - Tobacco use Status: Acute Assessment and Plan A/P: 1. Palpitations: secondary to tachyarrhythmia, HR 160's on arrival, s/p Propranolol IV, HR currently 70's, no c/o palpitations at this time. TSH normal. IVF for hydration. Check serial cardiac enzymes. Check Echo. Metoprolol bid. Consult Cardiology as needed. 2. Chest Pain: likely secondary to above, no significant risk factors for CAD except tobacco history. Chest pain currently resolved. NTG/Morphine prn if needed. Check serial enzymes. Lipid Profile. 3. Elevated Trop: Trop 0.06, EKG w/ no acute ischemia. Likely due to tachycardia, check serial cardiac enzymes for trend. Check U/a and UDS. ASA, Statin, Metoprolol. 4. Hypokalemia: K+ 3.0, will replace and recheck in am. 5. Renal Insufficiency: Chronic. Creatinine 1.23, also 1.23 on 10/04/16. Check U/a. IVF for hydration, repeat labs in am. 6. Tobacco Abuse: Counselled. Ativan prn if needed. No NicoDerm to avoid vasoconstriction. 7. DVT Prophylaxis: SCD/Teds. 8. Social work for d/c planning as needed. 9. Case discussed w/ ER physician at length. Zahira Crockett MD Jan 09, 2017 02:51
[2017-01-09 03:14] LABS: BACTERIA, URINE RARE /hpf; BLOOD, URINE NEG (NEG); COMMENT (UR) CULT NOT INDICATED; CULTURE IF INDICATED CULT NOT INDICATED; GLUCOSE,URINE NEG (NEG); KETONE, URINE NEG (NEG); NITRITE,URINE NEG (NEG); SQUAMOUS EPITHELIAL CELL URINE 3 /hpf (0-5); URINE COLOR COLORLESS (YELLW/STRAW)
[2017-01-09 07:16] LABS: AUTOMATED NEUTROPHIL # 3.5 TH/MM3 (1.8-7.7); BASOPHIL # 0.1 TH/MM3 (0-0.2); EOSINOPHIL # 0.1 TH/MM3 (0-0.4); EOSINOPHIL % 2.4 % (0.0-4.0); HEMATOCRIT 30.9 % (35.0-46.0); HEMO FLAGS DIFF FINAL; LYMPH % 29.6 % (9.0-44.0); LYMPHOCYTE # 1.8 TH/MM3 (1.0-4.8); MEAN CELL VOLUME 75.5 FL (80.0-100.0); MEAN CORPUSCULAR HEMOGLOBIN 23.8 PG (27.0-34.0); MEAN CORPUSCULAR HGB CONC 31.6 % (32.0-36.0); MONO % 9.4 % (0.0-8.0); NEUT % 57.6 % (16.0-70.0); PLATELET COUNT 261 TH/MM3 (150-450); RED CELL DISTRIBUTION WIDTH 16.9 % (11.6-17.2)
[2017-01-09 07:27] LABS: ALT (GPT) 13 U/L (10-53); ANION GAP 7 MEQ/L (5-15); AST (GOT) 11 U/L (15-37); BICARBONATE 23.1 MEQ/L (21.0-32.0); BLOOD UREA NITROGEN 7 MG/DL (7-18); CHLORIDE 112 MEQ/L (98-107); GLOMERULAR FILTRATION RATE 81 ML/MIN (>89); POTASSIUM 3.8 MEQ/L (3.5-5.1); SODIUM (NA) 142 MEQ/L (136-145)
[2017-01-09 07:32] LABS: ALKALINE PHOSPHATASE 55 U/L (45-117); HDL CHOLESTEROL 46.6 MG/DL (40.0-60.0); LDL CHOLESTEROL 72 MG/DL (0-99); TOTAL BILIRUBIN ADULT 0.3 MG/DL (0.2-1.0)
[2017-01-09] MEDS ORDERED: DOCUSATE SODIUM 50 MG/SENNA 8.6 MG TAB PO SCH (09:00)
[2017-01-09] MEDS ORDERED: ASPIRIN EC 81 MG TABEC PO SCH (09:00)
[2017-01-09] MEDS ORDERED: METOPROLOL TARTRATE 25 MG TAB PO SCH (09:00)
[2017-01-09] MEDS ORDERED: SODIUM CHLORIDE 0.9% FLUSH 10 ML FLUSH IV FLUSH SCH (09:00)
--- NOTE | 2017-01-09 09:30 | MB ---
cc: GILBERTO AGUIRRE MD DATE OF CONSULTATION: 01/09/2017 REASON FOR CONSULTATION Elevated troponin. HISTORY OF PRESENT ILLNESS The patient is a pleasant 41-year-old woman with a history of tobacco abuse, who stated she came in with vague chest discomfort as well as palpitations and shortness of breath and lightheadedness. She was admitted for observation. She is now feeling better and resting comfortably/fairly sleepy currently. No current chest pain or shortness of breath. PAST MEDICAL HISTORY 1. Hypertension. 2. Asthma. 3. Tobacco abuse (counseled at length by me). CURRENT MEDICATIONS 1. Aspirin 81 mg daily. 2. Lopressor. 3. Magnesium. 4. Lactulose. ALLERGIES NO KNOWN DRUG ALLERGIES. PHYSICAL EXAMINATION VITAL SIGNS: Afebrile, pulse 68, respiratory rate 18, BP 161/106, down to 140/93, sating 96% on room air. GENERAL: Pleasant well-appearing -[place] woman in no distress. NECK: No JVD. LUNGS: Clear to auscultation bilaterally. CARDIOVASCULAR: Regular rate and rhythm. No murmurs appreciated. ABDOMEN: Benign. EXTREMITIES: No edema. LABORATORY DATA Sodium 142, potassium 3.8, chloride 112, bicarb 23.1, BUN 7, creatinine 0.92, glucose 85. Tox screen is positive for cocaine. INR is 1.0, white count 6.0, hematocrit 30.9, platelets 261. EKG Shows sinus rhythm with nonspecific ST changes. IMPRESSION 1. Chest pain, shortness of breath, lightheadedness, palpitations. These are likely due to her cocaine use, evidenced by her tox screen. I will have her undergo a nuclear stress test once a Beta-hCG has been done to exclude . She will be observed on telemetry. If her stress test is nonischemic and no further events appear on telemetry she can likely be discharged to follow up with primary care. Thank you again for the opportunity to participate in this patient's care. Gilberto Aguirre MD NICOLA/TLL /8:16 AM /9:17 AM
--- NOTE | 2017-01-09 09:56 | HHI.PR ---
Subjective Remarks Follow up chest pain and palpitations. Patient denies any recent chest pains or palpitations. Patient also denies any cocaine use despite positive drug screen. Objective Vitals Vital Signs Date Time Temp Pulse Resp B/P (MAP) Pulse Ox O2 Delivery O2 Flow Rate FiO2 01/09/17 08:00 98.2 68 18 140/93 (109) 96 01/09/17 04:01 74 01/09/17 03:56 97.9 70 18 159/92 (114) 100 01/09/17 03:10 79 16 159/99 (119) 100 01/09/17 01:39 78 16 160/88 (112) 100 Room Air 01/09/17 01:20 140 20 161/106 (124) 100 01/09/17 00:57 138 16 99 Room Air 01/09/17 00:06 138 22 99 Room Air 01/09/17 00:06 100 Room Air 01/09/17 00:03 98.6 134 22 132/80 (97) 99 01/08/17 23:51 99.2 165 18 109/64 (79) 97 Room Air I/O 01/08/17 01/08/17 01/08/17 01/09/17 01/09/17 01/09/17 07:00 15:00 23:00 07:00 15:00 23:00 Intake Total 1050 ml Balance 1050 ml Intake Oral 50 ml IV Total 1000 ml Result Diagram: 01/09/17 0700 01/09/17 0700 Objective Remarks GENERAL: Very pleasant middle-aged black female in no acute distress. Resting comfortably. HEENT: PERRLA, EOMI. No scleral icterus or conjunctival pallor. No lid lag or facial droop. CARDIOVASCULAR: Regular rate and rhythm. No obvious murmurs to auscultation. No chest tenderness to palpation. RESPIRATORY: No obvious rhonchi or wheezing. Clear to auscultation. Breath sounds equal bilaterally. GASTROINTESTINAL: Abdomen soft, non-tender, nondistended. BS normal. MUSCULOSKELETAL: Extremities without clubbing, cyanosis, or edema. No obvious deformities. NEUROLOGICAL: Awake, alert and oriented x4. No focal neurologic deficits. Moving both upper and lower extremities spontaneously. Medications and IVs Current Medications Medications (Trade) Dose Ordered Sig/Fidelina Route Start Time Stop Time Status Last Admin (NS Flush) 2 ml UNSCH PRN IVF 01/09/17 00:00 Sodium Chloride 1,000 ml @ 100 mls/hr Q10H IV 01/09/17 02:22 01/09/17 03:47 (NS Flush) 2 ml UNSCH PRN IV FLUSH 01/09/17 02:30 (NS Flush) 2 ml BID IV FLUSH 01/09/17 09:00 (Zofran Inj) 4 mg Q6H PRN IVP 01/09/17 02:30 (Tylenol) 650 mg Q6H PRN PO 01/09/17 02:30 ([place] 5-325 Mg) 1 tab Q4H PRN PO 01/09/17 02:30 ([place] 10-325 Mg) 1 tab Q4H PRN PO 01/09/17 02:30 (Shelbi-Colace) 1 tab BID PO 01/09/17 09:00 (Milk Of Magnesia Liq) 30 ml Q12H PRN PO 01/09/17 02:30 (Senokot) 17.2 mg Q12H PRN PO 01/09/17 02:30 (Dulcolax Supp) 10 mg DAILY PRN RECTAL 01/09/17 02:30 (Lactulose Liq) 30 ml DAILY PRN PO 01/09/17 02:30 (Ecotrin Ec) 81 mg DAILY PO 01/09/17 09:00 (Pill Splitter) 1 ea UNSCH PRN OTHER 01/09/17 02:45 A/P Problem List: (1) Palpitations ICD Code: R00.2 - Palpitations (2) Chest pain ICD Code: R07.9 - Chest pain, unspecified (3) Elevated troponin ICD Code: R74.8 - Abnormal levels of other serum enzymes Status: Acute (4) Renal insufficiency ICD Code: N28.9 - Disorder of kidney and ureter, unspecified (5) Hypokalemia ICD Code: E87.6 - Hypokalemia (6) Tobacco abuse ICD Code: Z72.0 - Tobacco use Status: Acute Assessment and Plan 41-year-old female with a PMH of HTN, Asthma and Tobacco Abuse who presented to the ER with complaints of acute onset of palpitations and chest pain starting approx 1hr prior to arrival. Palpitations with elevated troponin: secondary to tachyarrhythmia, Currently resolved. Troponin .06-->.09 -Check Echo. -Consult Cardiology for increasing troponin. -Lexiscan recommended per cardiology Chest Pain: likely secondary to above, and cocaine use. Chest pain currently resolved. -NTG/Morphine prn if needed. -3rd set of troponin pending - Lipid Profile unremarkable Elevated Troponin Trop 0.06, EKG w/ no acute ischemia. Likely due to tachycardia, check serial cardiac enzymes for trend. Check U/a and UDS. ASA, Statin, Metoprolol. Hypokalemia: K+ 3.0, resolved to 3.8 -Replace as needed Renal Insufficiency: Chronic. Creatinine 1.23--> .92 resolved UA negative -Cont IVF for hydration Hypertension, chronic -Resume home medications lisinopril and HCTZ Tobacco Abuse and substance abuse: -Counselled. Ativan prn if needed. No NicoDerm to avoid vasoconstriction. DVT Prophylaxis: SCD/Teds. Discharge Planning Discharge if stress test is negative Yesy Peterson Jan 09, 2017 09:56
[2017-01-09] MEDS ORDERED: REGADENOSON INJ 0.4 MG/5 ML SYR ONE (11:00)
--- NOTE | 2017-01-09 12:40 | RADRPT ---
EXAM DATE/TIME: 01/09/2017 10:05 [facility] COMPARISON: No previous studies available for comparison. INDICATIONS : Chest pain and dyspnea after cocaine use. Angina. DOSE: mCi Tc99m Myoview at stress. ? mCi Tc99m Myoview at rest. 0.4 mg Lexiscan STRESS SYMPTOMS: EJECTION FRACTION: 51% MEDICAL HISTORY : Hypertension. Asthma. Smoker. SURGICAL HISTORY : Umbilical hernia repair. Tubal ligation. ENCOUNTER: Initial ACUITY: 1 day PAIN SCALE: 1/10 LOCATION: Substernal chest TECHNIQUE: The patient underwent pharmacologic stress with infusion of prescribed dose. Continuous ECG tracing was monitored during stress. Gated SPECT imaging was performed after stress and conventional SPECT i maging was performed at rest. The examination was performed on a SPECT/CT scanner, both attenuation and non-corrected datasets were reviewed. FINDINGS: DISTRIBUTION: The maximum perfused segment at stress is in the inferior wall. PERFUSION STUDY: There is a fixed defect involving the apex. Small areas of 10% redistribution seen involving the late ral wall. No significant redistribution appreciated. GATED STUDY: There is intact wall motion and thickening without hypokinetic or dyskinetic segments. CONCLUSION: No reversible defects observed to suggest acute ischemia. RISK CATEGORY: Low Thor Cheney Jr., MD on January 09, 2017 at 12:34 Board Certified Radiologist. This report was verified electronically.
--- NOTE | 2017-01-09 13:19 | EKG ---
Date Performed: 01/08/2017 Time Performed: 23:59:56 PTAGE: 41 years EKG: SINUS TACHYCARDIA NONSPECIFIC ST & T-WAVE ABNORMALITY ABNORMAL RHYTHM ECG PREVIOUS TRACING : 10/08/2015 14.53 Compared to previous tracing There is now tachycardia DOCTOR: Maki Ferrer Interpretating Date/Time 01/09/2017 13:19:14
[2017-01-09] MEDS ORDERED: LISINOPRIL 20 MG TAB PO SCH (14:00)
[2017-01-09] MEDS ORDERED: HYDROCHLOROTHIAZIDE 12.5 MG CAP PO SCH (14:00)
--- NOTE | 2017-01-09 15:35 | ECHRPT ---
Indication: Cardiomyopathy, unspecified CONCLUSIONS The left ventricular systolic function is low normal with an estimated ejection fraction in the rang e of 50- 55%. Mild concentric left ventricular hypertrophy. Normal left ventricular size. BP: 140 / 93 HR: 96 Rhythm: Sinus MEASUREMENTS (Male / Female) Normal Values Technical Quality:Good 2D ECHO LV Diastolic Diameter PLAX 4.4 cm 4.2 - 5.9 / 3.9 - 5.3 cm LV Systolic Diameter PLAX 3.4 cm IVS Diastolic Thickness 1.3 cm 0.6 - 1.0 / 0.6 - 0.9 cm LVPW Diastolic Thickness 1.3 cm 0.6 - 1.0 / 0.6 - 0.9 cm LV Relative Wall Thickness 0.6 LVOT Diameter 2.2 cm M-MODE Aortic Root Diameter MM 3.4 cm LA Systolic Diameter MM 3.1 cm LA Ao Ratio MM 0.9 AV Cusp Separation MM 2.2 cm DOPPLER AV Peak Velocity 141.0 cm/s AV Peak Gradient 8.0 mmHg LVOT Peak Velocity 114.0 cm/s LVOT Peak Gradient 5.2 mmHg AV Area Cont Eq pk 3.1 cm Mitral E Point Velocity 92.8 cm/s Mitral A Point Velocity 41.0 cm/s Mitral E to A Ratio 2.3 LV E' Lateral Velocity 15.8 cm/s Mitral E to LV E' Lateral Ratio 5.9 LV E' Septal Velocity 7.9 cm/s Mitral E to LV E' Septal Ratio 11.7 PV Peak Velocity 100.0 cm/s PV Peak Gradient 4.0 mmHg FINDINGS LEFT VENTRICLE The left ventricular systolic function is low normal with an estimated ejection fraction in the rang e of 50- 55%. Mild concentric left ventricular hypertrophy. Normal left ventricular size. RIGHT VENTRICLE Normal right ventricular size and systolic function. LEFT ATRIUM The left atrial size is normal. RIGHT ATRIUM The right atrial size is normal. ATRIAL SEPTUM Normal atrial septal thickness without atrial level shunting by limited color doppler interrogation. AORTA The aortic root and proximal ascending aorta are normal in size on limited imaging. MITRAL VALVE Structurally normal mitral valve. No mitral valve stenosis or regurgitation. AORTIC VALVE Trileaflet aortic valve. No aortic valve stenosis or regurgitation. TRICUSPID VALVE Structurally normal tricuspid valve. No tricuspid valve stenosis or regurgitation. PULMONARY VALVE The pulmonary valve is not well visualized. VESSELS The inferior vena cava is normal in size. PERICARDIUM No pericardial effusion. Gilberto Aguirre MD (Electronically Signed) Final Date:09 January 2017 15:34
--- NOTE | 2017-01-09 15:48 | HHI.DCPOC ---
Discharge Care Plan Diagnosis: (1) Tachycardia (2) Palpitations (3) Tobacco abuse Goals to Promote Your Health * To prevent worsening of your condition and complications * To maintain your health at the optimal level Directions to Meet Your Goals Take your medications as prescribed Follow your dietary instruction Follow activity as directed Keep your appointments as scheduled Take your immunizations and boosters as scheduled If your symptoms worsen call your PCP, if no PCP go to Urgent Care Center or Emergency Room Smoking is Dangerous to Your Health. Avoid second hand smoke Call the 24-hour hour crisis hotline for domestic abuse at Yesy Peterson Jan 09, 2017 15:48
== END 2017-01-09 18:35 | disposition home or self-care (01) ==
LOC: NEPE 23:50 → NEDA 01-09 02:23 → NEPGCP 01-09 03:19
PROVIDERS: ADMIT Hospitalist; ATTEND Hospitalist
DX: R55 Syncope and collapse (principal); R00.2 Palpitations; R00.0 Tachycardia, unspecified; R07.9 Chest pain, unspecified; I10 Essential (primary) hypertension; E87.6 Hypokalemia; R74.8 Abnormal levels of other serum enzymes; F14.90 Cocaine use, unspecified, uncomplicated; N28.9 Disorder of kidney and ureter, unspecified; J45.909 Unspecified asthma, uncomplicated; Z72.0 Tobacco use; Z79.899 Other long term (current) drug therapy
CPT/HCPCS: 71010; 78452; 80053; 80061; 80307; 81001; 82550; 83735; 84443; 84484; 84703; 85025; 85379; 85610; 85730; 93005; 93017; 93306; 96361; 96374; 99285; A9502; G0378; J1800; J2785; J7030

== ENCOUNTER 2017-04-03 17:44 | Emergency (ER) | payer MEDICAID ==
[~2017-04-03] VITALS: Ht 170.2 cm; Wt 77.0 kg
[~2017-04-03 17:44] MED LIST changes: -CLIN1CAP5 PO; -FLOR250C PO; -TRAM50TA PO
[2017-04-03 18:11] VITALS: BP_SYST 128; BP_DIAS 75; BP_DIAS 95; PULSE 85; RESP 17; TEMP 98.6; O2SAT 99
[2017-04-03] MEDS ORDERED: SODIUM CHLOR 0.9% 1000 ML INJ 1,000 ML IV ONE (18:30)
[2017-04-03] MEDS ORDERED: SODIUM CHLORIDE 0.9% FLUSH 10 ML FLUSH IVF PRN (18:30)
[2017-04-03 18:46] VITALS: O2SAT 100
[2017-04-03 18:47] VITALS: BP_SYST 128; BP_SYST 134; BP_DIAS 100; BP_DIAS 95
[2017-04-03 18:58] LABS: AUTOMATED NEUTROPHIL # 3.8 TH/MM3 (1.8-7.7); BASOPHIL % 0.7 % (0.0-2.0); EOSINOPHIL # 0.2 TH/MM3 (0-0.4); EOSINOPHIL % 4.1 % (0.0-4.0); HEMATOCRIT 29.4 % (35.0-46.0); HEMOGLOBIN 9.3 GM/DL (11.6-15.3); LYMPHOCYTE # 1.5 TH/MM3 (1.0-4.8); MEAN CELL VOLUME 71.6 FL (80.0-100.0); MEAN CORPUSCULAR HEMOGLOBIN 22.6 PG (27.0-34.0); MEAN CORPUSCULAR HGB CONC 31.6 % (32.0-36.0); MEAN PLATELET VOLUME 9.3 FL (7.0-11.0); MONOCYTE # 0.4 TH/MM3 (0-0.9); NEUT % 64.2 % (16.0-70.0); PLATELET COUNT 307 TH/MM3 (150-450); RED BLOOD COUNT 4.11 MIL/MM3 (4.00-5.30); RED CELL DISTRIBUTION WIDTH 19.2 % (11.6-17.2); WHITE BLOOD COUNT 5.9 TH/MM3 (4.0-11.0)
--- NOTE | 2017-04-03 19:05 | RADRPT ---
EXAM DATE/TIME: 04/03/2017 18:54 [facility] COMPARISON: CHEST SINGLE AP, January 09, 2017, 0:17. INDICATIONS : Chest pain, shortness of breath, and dizziness for one day. MEDICAL HISTORY : Hypertension. Asthma. Anemia. SURGICAL HISTORY : Umbilical hernia repair. Tubal ligation. ENCOUNTER: Initial ACUITY: 1 day PAIN SCORE: 10/10 LOCATION: Bilateral chest FINDINGS: A single view of the chest demonstrates the lungs to be symmetrically aerated without evidence of mas s, infiltrate or effusion. The cardiomediastinal contours are unremarkable. Osseous structures are intact. CONCLUSION: No evidence of acute cardiopulmonary disease. Naren Tan MD on April 03, 2017 at 19:02 Board Certified Radiologist. This report was verified electronically.
[2017-04-03 19:08] LABS: PROTHROMBIN TIME - PATIENT 10.4 SEC (9.8-11.6)
--- NOTE | 2017-04-03 19:12 | PD ---
Physical Exam Narrative General: The patient is a well-developed well-nourished female in no acute distress. Head and Neck exam: Head is normocephalic atraumatic. Eyes: EOMI, pupils are equal round and reactive to light. Nose: Midline septum with pink mucous membranes Mouth: Dentition unremarkable. Moist mucus membranes. Posterior oropharynx is not erythematous. No tonsillar hypertrophy. Uvula midline. Airway patent. Neck: No palpable lymphadenopathy. No nuchal rigidity. No thyromegaly. Cardiovascular: Regular rate and rhythm without murmurs, gallops, or rubs. No pulse deficit to the extremities on simultaneous auscultation and palpation of her radial artery Lungs: Clear to auscultation bilaterally. No wheezes, rhonchi, or rales. Abdomen: Soft, without tenderness to palpation in all 4 quadrants of the abdomen. No guarding, rebound, or rigidity. Normal bowel sounds are audible. No tenderness on palpation of McBurney's point. Extremities: No clubbing, cyanosis, or edema. No calf tenderness on palpation. Neurologic Exam: Grossly nonfocal. Skin Exam: No rash noted. Intact skin that is warm and dry. Data Data Last Documented VS Vital Signs Date Time Temp Pulse Resp B/P (MAP) Pulse Ox O2 Delivery O2 Flow Rate FiO2 04/03/17 18:47 128/95 (106) 134/100 (111) 04/03/17 18:46 100 Room Air 04/03/17 18:11 98.6 85 17 Orders Orders Electrocardiogram (04/03/17 ) Complete Blood Count With Diff (04/03/17 18:29) Comprehensive Metabolic Panel (04/03/17 18:29) Prothrombin Time / Inr (Pt) (04/03/17 18:29) Act Partial Throm Time (Ptt) (04/03/17 18:29) Troponin I (04/03/17 18:29) Chest, Single Ap (04/03/17 18:29) Ecg Monitoring (04/03/17 18:29) Bilateral Bp Monitoring (04/03/17 18:29) Iv Access Insert/Monitor (04/03/17 18:29) Oximetry (04/03/17 18:29) Oxygen Administration (04/03/17 18:29) Sodium Chloride 0.9% Flush (Ns Flush) (04/03/17 18:30) Sodium Chlor 0.9% 1000 Ml Inj (Ns 1000 M (04/03/17 18:30) Labs Laboratory Tests Test 04/03/17 18:45 White Blood Count 5.9 TH/MM3 Red Blood Count 4.11 MIL/MM3 Hemoglobin 9.3 GM/DL Hematocrit 29.4 % Mean Corpuscular Volume 71.6 FL Mean Corpuscular Hemoglobin 22.6 PG Mean Corpuscular Hemoglobin Concent 31.6 % Red Cell Distribution Width 19.2 % Platelet Count 307 TH/MM3 Mean Platelet Volume 9.3 FL Neutrophils (%) (Auto) 64.2 % Lymphocytes (%) (Auto) 25.0 % Monocytes (%) (Auto) 6.0 % Eosinophils (%) (Auto) 4.1 % Basophils (%) (Auto) 0.7 % Neutrophils # (Auto) 3.8 TH/MM3 Lymphocytes # (Auto) 1.5 TH/MM3 Monocytes # (Auto) 0.4 TH/MM3 Eosinophils # (Auto) 0.2 TH/MM3 Basophils # (Auto) 0.0 TH/MM3 CBC Comment DIFF FINAL Differential Comment Prothrombin Time 10.4 SEC Prothromb Time International Ratio 1.0 RATIO Activated Partial Thromboplast Time 25.7 SEC Blood Urea Nitrogen 11 MG/DL Creatinine 0.98 MG/DL Random Glucose 106 MG/DL Total Protein 7.0 GM/DL Albumin 3.1 GM/DL Calcium Level 8.4 MG/DL Alkaline Phosphatase 62 U/L Aspartate Amino Transf (AST/SGOT) 21 U/L Alanine Aminotransferase (ALT/SGPT) 17 U/L Total Bilirubin 0.2 MG/DL Sodium Level 139 MEQ/L Potassium Level 3.6 MEQ/L Chloride Level 109 MEQ/L Carbon Dioxide Level 26.4 MEQ/L Anion Gap 4 MEQ/L Estimat Glomerular Filtration Rate 75 ML/MIN Troponin I LESS THAN 0.02 NG/ML [facility] Medical Record Reviewed: Yes Supervised Visit with SIMRAN: No Narrative Course During the course of the patients emergency department visit, the patients history, examination, and differential diagnosis were reviewed with the patient. The patient was placed on a ticket collector with oximetry and frequent blood pressure monitoring. The patient had IV access obtained and blood work sent for analysis. The patient was initially seen by Dr. Pérez. Please see her complete history and physical. The patient's case was checked out to me at the conclusion of her shift. The patient reported a history of dizziness, palpitations, nausea that began a Stanislaw 4 hours prior to arrival in the emergency department. The patient was brought in by ambulance services and was noted to be in SVT prior to arrival. The patient converted to a sinus rhythm after a dose of adenosine. The patient was last admitted to the hospital month and a half ago related to a tachycardia dysrhythmia and a slightly elevated troponin. At that time it was thought to be related to cocaine use. The patient reports that she last used drugs 2 days ago. She reports that she used "Tequila". The patient reports that the symptoms began while she was sleeping and awoke her. The patient reports having a past medical history of hypertension, asthma, and anemia. The patient reports that she is on lisinopril , hydrochlorothiazide, and amlodipine. The patient was initially provided normal saline 1 L IV fluid bolus. The patients laboratory studies were reviewed and remarkable for a CBC that shows a hemoglobin of 9.3 which is stable compared to previously. CMP is unremarkable, troponin I less than 0.02. Radiology studies were reviewed and remarkable for a chest x-ray that shows no evidence of acute cardiopulmonary disease. Review of the electronic medical record reveals that the patient was last admitted to the hospital related to a tachydysrhythmia and December 2016. The patient underwent a stress test at that time that was negative. The Patient's symptoms are consistent with SVT that converted with adenosine. The patient also had a normal TSH at that time. The patient will be discharged home. The patient is instructed to avoid all street drugs. The patient is resting comfortably and feels better, is alert and in no distress. The patients results and examination findings were discussed with the patient. The repeat examination is unremarkable and benign. The history, exam, diagnostic testing, and current condition do not suggest any significant pathology to warrant further testing, continued ED treatment, admission, or surgical evaluation at this point. The vital signs have been stable. The patient does not have uncontrollable pain, intractable vomiting, or other significant symptoms. The patient's condition is stable and appropriate for discharge. The patient will pursue further outpatient evaluation with a primary care physician or other designated or consulting physician as indicated in the discharge instructions. The patient expressed understanding and was agreeable with this plan. Diagnosis Primary Impression: SVT (supraventricular tachycardia) Referrals: Primary Care Physician 2 days Patient Instructions: General Instructions, Supraventricular Tachycardia (ED) Med/Other Pt SpecificInfo: No Change to Meds Disposition: 01 DISCHARGE HOME Condition: Stable Veronika Mccormick MD Apr 03, 2017 19:12
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
[2017-04-03 19:20] LABS: ALBUMIN 3.1 GM/DL (3.4-5.0); ALT (GPT) 17 U/L (10-53); AST (GOT) 21 U/L (15-37); BICARBONATE 26.4 MEQ/L (21.0-32.0); BLOOD UREA NITROGEN 11 MG/DL (7-18); CALCIUM 8.4 MG/DL (8.5-10.1); CHLORIDE 109 MEQ/L (98-107); CREATININE 0.98 MG/DL (0.50-1.00); GLOMERULAR FILTRATION RATE 75 ML/MIN (>89); GLUCOSE,RANDOM 106 MG/DL (74-106); SODIUM (NA) 139 MEQ/L (136-145)
[2017-04-03 19:24] LABS: ALKALINE PHOSPHATASE 62 U/L (45-117); TOTAL BILIRUBIN ADULT 0.2 MG/DL (0.2-1.0); TROPONIN I LESS THAN 0.02 NG/ML (0.02-0.05)
[2017-04-03 19:49] VITALS: BP 139/104; PULSE 62; RESP 18; O2SAT 100
--- NOTE | 2017-04-04 13:36 | EKG ---
Date Performed: 04/03/2017 Time Performed: 18:21:10 PTAGE: 41 years EKG: Sinus rhythm POSSIBLE LEFT ATRIAL ENLARGEMENT NONSPECIFIC T-WAVE ABNORMALITY Compared to previous tracing rate millan s slowed, nonspecific ST T changes have improved BORDERLINE ECG PREVIOUS TRACING : 01/08/2017 23.59 DOCTOR: Chas Bradley Interpretating Date/Time 04/04/2017 13:35:44
== END 2017-04-03 20:13 | disposition home or self-care (01) ==
LOC: NEPE 17:44
DX: R00.2 Palpitations (principal); R06.02 Shortness of breath; R11.2 Nausea with vomiting, unspecified; R94.31 Abnormal electrocardiogram [ECG] [EKG]; D64.9 Anemia, unspecified; J45.909 Unspecified asthma, uncomplicated; E78.00 Pure hypercholesterolemia, unspecified; I10 Essential (primary) hypertension; F17.200 Nicotine dependence, unspecified, uncomplicated
CPT/HCPCS: 71045; 80053; 84484; 85025; 85610; 85730; 93005; 99285; J7030

== ENCOUNTER 2017-05-20 01:18 | Emergency (ER) | payer MEDICAID ==
[~2017-05-20] VITALS: Ht 170.2 cm; Wt 76.0 kg
[2017-05-20 01:37] VITALS: BP 159/79; PULSE 78; RESP 18; TEMP 98.6; O2SAT 100
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
[2017-05-20] MEDS ORDERED: SODIUM CHLOR 0.9% 1000 ML INJ 1,000 ML IV ONE (02:00)
[2017-05-20] MEDS ORDERED: KETOROLAC TROMETHAMINE 30 MG/ML (IVP) VIAL IV PUSH ONE (02:00)
[2017-05-20] MEDS ORDERED: SODIUM CHLORIDE 0.9% FLUSH 10 ML FLUSH IVF PRN (02:00)
[2017-05-20 02:18] VITALS: O2SAT 98
[2017-05-20 02:19] VITALS: BP 152/86; PULSE 68; RESP 16; O2SAT 98
--- NOTE | 2017-05-20 02:29 | RADRPT ---
EXAM DATE/TIME: 05/20/2017 02:08 [facility] COMPARISON: No previous studies available for comparison. INDICATIONS : Pain and swelling to right distal tib-fib. No known injury MEDICAL HISTORY : None. SURGICAL HISTORY : None. ENCOUNTER: Initial ACUITY: 1 day PAIN SCORE: 7/10 LOCATION: Right Tib-fib FINDINGS: Two view examination of the right tibia demonstrates no evidence of fracture or dislocation. Bony mi neralization is normal. The soft tissue structures are intact. CONCLUSION: Negative exam. Thor Arnett MD on May 20, 2017 at 2:28 Board Certified Radiologist. This report was verified electronically.
[2017-05-20 02:33] LABS: AUTOMATED NEUTROPHIL # 3.3 TH/MM3 (1.8-7.7); BASOPHIL # 0.1 TH/MM3 (0-0.2); BASOPHIL % 1.3 % (0.0-2.0); EOSINOPHIL # 0.2 TH/MM3 (0-0.4); EOSINOPHIL % 3.4 % (0.0-4.0); HEMATOCRIT 23.2 % (35.0-46.0); HEMOGLOBIN 7.1 GM/DL (11.6-15.3); LYMPH % 29.5 % (9.0-44.0); LYMPHOCYTE # 1.7 TH/MM3 (1.0-4.8); MEAN CELL VOLUME 66.1 FL (80.0-100.0); MEAN CORPUSCULAR HEMOGLOBIN 20.3 PG (27.0-34.0); MEAN CORPUSCULAR HGB CONC 30.7 % (32.0-36.0); MEAN PLATELET VOLUME 8.2 FL (7.0-11.0); MONOCYTE # 0.5 TH/MM3 (0-0.9); NEUT % 56.8 % (16.0-70.0); PLATELET COUNT 204 TH/MM3 (150-450); RED BLOOD COUNT 3.51 MIL/MM3 (4.00-5.30); RED CELL DISTRIBUTION WIDTH 18.9 % (11.6-17.2); WHITE BLOOD COUNT 5.8 TH/MM3 (4.0-11.0)
[2017-05-20 02:46] LABS: PROTHROMBIN TIME - PATIENT 10.4 SEC (9.8-11.6)
[2017-05-20 02:47] LABS: BICARBONATE 23.1 MEQ/L (21.0-32.0); BLOOD UREA NITROGEN 16 MG/DL (7-18); CALCIUM 8.3 MG/DL (8.5-10.1); CHLORIDE 109 MEQ/L (98-107); CREATININE 1.03 MG/DL (0.50-1.00); GLOMERULAR FILTRATION RATE 71 ML/MIN (>89); GLUCOSE,RANDOM 113 MG/DL (74-106); SODIUM (NA) 141 MEQ/L (136-145)
[2017-05-20] MEDS ORDERED: IOHEXOL 350 MG/ML 10 ML VIAL (for RAD DIAG) IVCONTRAST ONE (03:28)
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
[2017-05-20] MEDS ORDERED: FERR325T18 PO (04:38)
[2017-05-20] MEDS ORDERED: FERROUS SULFATE 325 MG (65 MG ELEMENTAL IRON) TAB PO ONE (04:45)
== END 2017-05-20 04:52 | disposition home or self-care (01) ==
LOC: NEPE 01:18
DX: D64.9 Anemia, unspecified (principal); D25.9 Leiomyoma of uterus, unspecified; I10 Essential (primary) hypertension; E78.00 Pure hypercholesterolemia, unspecified; J45.909 Unspecified asthma, uncomplicated; F17.210 Nicotine dependence, cigarettes, uncomplicated; Y00.XXXA Assault by blunt object, initial encounter; Z79.899 Other long term (current) drug therapy
CPT/HCPCS: 70450; 71260; 72125; 73590; 74177; 80048; 80307; 84703; 85025; 85610; 85730; 96361; 96374; 99285; J1885; J7030; Q9967

== ENCOUNTER 2017-07-02 19:39 | Observation (INO) | payer MEDICAID ==
[~2017-07-02] VITALS: Ht 170.2 cm; Wt 76.0 kg
[2017-07-02] VITALS (7 sets, daily range): BP systolic 141–158; BP diastolic 70–91; PULSE 60–82; RESP 16–20; TEMP 98–98.6; O2SAT 98–100
[~2017-07-02 19:39] MED LIST changes: +FERR325T18 PO
[2017-07-02] MEDS ORDERED: AMLO5TAB2 PO (19:56)
[2017-07-02] MEDS ORDERED: SODIUM CHLORIDE 0.9% FLUSH 10 ML FLUSH IVF PRN (20:00)
[2017-07-02] MEDS ORDERED: ASPIRIN 325 MG TAB PO ONE (20:00)
[2017-07-02 20:06] LABS: AUTOMATED NEUTROPHIL # 2.4 TH/MM3 (1.8-7.7); BASOPHIL # 0.1 TH/MM3 (0-0.2); BASOPHIL % 1.5 % (0.0-2.0); EOSINOPHIL # 0.4 TH/MM3 (0-0.4); EOSINOPHIL % 8.4 % (0.0-4.0); HEMATOCRIT 25.7 % (35.0-46.0); HEMOGLOBIN 7.8 GM/DL (11.6-15.3); LYMPH % 30.4 % (9.0-44.0); LYMPHOCYTE # 1.4 TH/MM3 (1.0-4.8); MEAN CELL VOLUME 64.6 FL (80.0-100.0); MEAN CORPUSCULAR HEMOGLOBIN 19.6 PG (27.0-34.0); MEAN CORPUSCULAR HGB CONC 30.3 % (32.0-36.0); MEAN PLATELET VOLUME 8.5 FL (7.0-11.0); MONO % 7.2 % (0.0-8.0); MONOCYTE # 0.3 TH/MM3 (0-0.9); NEUT % 52.5 % (16.0-70.0); PLATELET COUNT 312 TH/MM3 (150-450); RED BLOOD COUNT 3.98 MIL/MM3 (4.00-5.30); RED CELL DISTRIBUTION WIDTH 20.1 % (11.6-17.2); WHITE BLOOD COUNT 4.6 TH/MM3 (4.0-11.0)
[2017-07-02 20:19] LABS: BICARBONATE 26.6 MEQ/L (21.0-32.0); BLOOD UREA NITROGEN 10 MG/DL (7-18); CALCIUM 8.2 MG/DL (8.5-10.1); CHLORIDE 113 MEQ/L (98-107); CREATININE 0.93 MG/DL (0.50-1.00); GLOMERULAR FILTRATION RATE 80 ML/MIN (>89); GLUCOSE,RANDOM 134 MG/DL (74-106); MAGNESIUM 1.9 MG/DL (1.5-2.5); SODIUM (NA) 145 MEQ/L (136-145)
[2017-07-02 20:20] LABS: PROTHROMBIN TIME - PATIENT 10.4 SEC (9.8-11.6)
[2017-07-02 20:23] LABS: TROPONIN I LESS THAN 0.02 NG/ML (0.02-0.05)
--- NOTE | 2017-07-02 20:42 | RADRPT ---
EXAM DATE/TIME: 07/02/2017 20:05 [facility] COMPARISON: CT THORAX W CONTRAST, May 20, 2017, 3:25. CHEST SINGLE AP, April 03, 2017, 18:54. INDICATIONS : Chest pain and shortness of breath. MEDICAL HISTORY : Hypertension. Hypercholesterolemia. Anemic. Hernia. SURGICAL HISTORY : Back surgery. ENCOUNTER: Initial ACUITY: 1 day PAIN SCORE: 10/10 LOCATION: Bilateral chest FINDINGS: A single view of the chest demonstrates the lungs to be symmetrically aerated without evidence of mas s, infiltrate or effusion. The cardiomediastinal contours are unremarkable. Osseous structures are intact. CONCLUSION: No evidence of acute cardiopulmonary disease. Naren Tan MD on July 02, 2017 at 20:40 Board Certified Radiologist. This report was verified electronically.
--- NOTE | 2017-07-02 20:47 | PD ---
HPI Chief Complaint: Chest Pain Time Seen by Provider: 19:47 Travel History International Travel<30 days: No Contact w/Intl Traveler<30days: No Traveled to known affect area: No History of Present Illness HPI 41-year-old female arrives by EMS. She was eating about 30 minutes prior to arrival when a sudden onset of palpitations and shortness of breath occurred. EMS on scene notes SVT with a rate of 140. The patient received 6 mg of adenosine followed by prompt resolution of symptoms. In the ER she has no complaints. She reports similar episode occurred about 1 month ago. The patient is here for follow-up with cardiology. At the time of ER evaluation medical complaints have resolved. PFSH Past Medical History Hx Anticoagulant Therapy: No Anemia: Yes Asthma: Yes Blood Disorders: No Heart Rhythm Problems: No Cancer: No Cardiovascular Problems: Yes (HTN, Anemia) High Cholesterol: Yes Chemotherapy: No Chest Pain: No Congestive Heart Failure: No COPD: No Diabetes: No Diminished Hearing: No Endocrine: No Genitourinary: No Hypertension: Yes Immune Disorder: No Musculoskeletal: No Neurologic: No Psychiatric: No Reproductive: No Respiratory: Yes (Asthma) Immunizations Current: Yes Radiation Therapy: No Sleep Apnea: No Thyroid Disease: No Tetanus Vaccination: < 5 Years Influenza Vaccination: No ?: Not Menopausal: No : 2 Para: 2 Miscarriage: 0 : 0 Tubal Ligation: Yes (2003) Past Surgical History Abdominal Surgery: Yes (hernia at 10 months old) Thoracic Surgery: Yes (BACK SURGERY 2013) Other Surgery: Yes Social History Alcohol Use: Yes (OCCASIONALLY) Tobacco Use: Yes (1/2 PPD) Substance Use: No Allergies-Medications (Allergen,Severity, Reaction): Coded Allergies: No Known Allergies (Verified Adverse Reaction, Unknown, 04/03/17) Reported Meds & Prescriptions Reported Meds & Active Scripts Active Ferrous Sulfate 325 Mg (65 Mg Iron) Tablet 325 Mg PO DAILY Reported Amlodipine (Amlodipine Besylate) 5 Mg Tab 5 Mg PO DAILY Hydrochlorothiazide 12.5 Mg Cap 12.5 Mg PO DAILY Lisinopril 20 Mg Tab 20 Mg PO DAILY Review of Systems Except as stated in HPI: all other systems reviewed are Neg General / Constitutional: No: Fever Physical Exam Narrative GENERAL: 41-year-old female pleasant well-nourished well-developed no acute distress Vital Signs Date Time Temp Pulse Resp B/P (MAP) Pulse Ox O2 Delivery O2 Flow Rate FiO2 07/02/17 19:56 98.0 76 20 158/91 (113) 98 Nasal Cannula 2.00 07/02/17 19:55 20 07/02/17 19:55 98.0 80 20 156/88 (110) 98 Room Air 158/91 (113) 07/02/17 19:54 Nasal Cannula 2.00 07/02/17 19:46 98.0 82 20 158/91 (113) 100 SKIN: Warm and dry. HEAD: Atraumatic. Normocephalic. EYES: Pupils equal and round. No scleral icterus. No injection or drainage. ENT: No nasal bleeding or discharge. Mucous membranes pink and moist. NECK: Trachea midline. No JVD. CARDIOVASCULAR: Regular rate and rhythm. RESPIRATORY: No accessory muscle use. Clear to auscultation. Breath sounds equal bilaterally. GASTROINTESTINAL: Abdomen soft, non-tender, nondistended. Hepatic and splenic margins not palpable. MUSCULOSKELETAL: Extremities without clubbing, cyanosis, or edema. No obvious deformities. NEUROLOGICAL: Awake and alert. No obvious cranial nerve deficits. Motor grossly within normal limits. Five out of 5 muscle strength in the arms and legs. Normal speech. PSYCHIATRIC: Appropriate mood and affect; insight and judgment normal. Data Data Last Documented VS Vital Signs Date Time Temp Pulse Resp B/P (MAP) Pulse Ox O2 Delivery O2 Flow Rate FiO2 07/02/17 19:56 98.0 76 20 158/91 (113) 98 Nasal Cannula 2.00 Orders Orders Electrocardiogram (07/02/17 19:47) Basic Metabolic Panel (Bmp) (07/02/17 19:47) Ckmb (Isoenzyme) Profile (07/02/17 19:47) Complete Blood Count With Diff (07/02/17 19:47) Magnesium (Mg) (07/02/17 19:47) Prothrombin Time / Inr (Pt) (07/02/17 19:47) Act Partial Throm Time (Ptt) (07/02/17 19:47) Troponin I (07/02/17 19:47) Chest, Single Ap (07/02/17 19:47) Ecg Monitoring (07/02/17 19:47) Bilateral Bp Monitoring (07/02/17 19:47) Iv Access Insert/Monitor (07/02/17 19:47) Oximetry (07/02/17 19:47) Oxygen Administration (07/02/17 19:47) Aspirin (Aspirin) (07/02/17 20:00) Sodium Chloride 0.9% Flush (Ns Flush) (07/02/17 20:00) CKMB (07/02/17 20:00) CKMB% (07/02/17 20:00) Type And Screen (07/02/17 21:06) Red Blood Cells (Rbc) (07/02/17 21:06) Blood Product Administration (07/02/17 21:06) Sodium Chlor 0.9% 250 Ml Inj (Ns 250 Ml (07/02/17 21:15) Admit Order (Ed Use Only) (07/02/17 ) Vital Signs (Adult) Q4H (07/02/17 21:13) Diet Heart Healthy (07/03/17 Breakfast) Activity Oob With Assistance (07/02/17 21:13) Labs Laboratory Tests Test 07/02/17 20:00 White Blood Count 4.6 TH/MM3 Red Blood Count 3.98 MIL/MM3 Hemoglobin 7.8 GM/DL Hematocrit 25.7 % Mean Corpuscular Volume 64.6 FL Mean Corpuscular Hemoglobin 19.6 PG Mean Corpuscular Hemoglobin Concent 30.3 % Red Cell Distribution Width 20.1 % Platelet Count 312 TH/MM3 Mean Platelet Volume 8.5 FL Neutrophils (%) (Auto) 52.5 % Lymphocytes (%) (Auto) 30.4 % Monocytes (%) (Auto) 7.2 % Eosinophils (%) (Auto) 8.4 % Basophils (%) (Auto) 1.5 % Neutrophils # (Auto) 2.4 TH/MM3 Lymphocytes # (Auto) 1.4 TH/MM3 Monocytes # (Auto) 0.3 TH/MM3 Eosinophils # (Auto) 0.4 TH/MM3 Basophils # (Auto) 0.1 TH/MM3 CBC Comment DIFF FINAL Differential Comment Prothrombin Time 10.4 SEC Prothromb Time International Ratio 1.0 RATIO Activated Partial Thromboplast Time 23.6 SEC Blood Urea Nitrogen 10 MG/DL Creatinine 0.93 MG/DL Random Glucose 134 MG/DL Calcium Level 8.2 MG/DL Magnesium Level 1.9 MG/DL Sodium Level 145 MEQ/L Potassium Level 3.4 MEQ/L Chloride Level 113 MEQ/L Carbon Dioxide Level 26.6 MEQ/L Anion Gap 5 MEQ/L Estimat Glomerular Filtration Rate 80 ML/MIN Total Creatine Kinase 191 U/L Creatine Kinase MB 0.9 NG/ML Troponin I LESS THAN 0.02 NG/ML MDM Medical Decision Making Medical Screen Exam Complete: Yes Emergency Medical Condition: Yes Medical Record Reviewed: Yes Differential Diagnosis NSTEMI, unstable angina, coronary vasospasm, PE, PTX, aortic dissection, pericarditis, myocarditis, endocarditis, PNA, esophageal disease, aneurysm, musculoskeletal etiologies, anxiety, cocaine/sympathomimetic abuse Narrative Course CBC & BMP Diagram 07/02/17 20:00 Calcium Level 8.2 L, Magnesium Level 1.9 MCV is 64.6 Troponins less than 0.02 Hemoglobin from approximately 5 weeks prior is on record at 7.1. The hemoglobin from approximately 10 months prior is 12. Pt has symptomatic anemia. 1U PRBCs ordered. Pt is appropriate RDU candidate for blood product transfusion. d/w Dr Crockett Diagnosis Primary Impression: SVT (supraventricular tachycardia) Additional Impressions: Anemia Qualified Codes: D64.9 - Anemia, unspecified Hypokalemia Admitting Information Admitting Physician Requests: Observation Referrals: [facility] call for appointment Artemio Lockett MD Jul 02, 2017 20:47
[2017-07-02] MEDS ORDERED: ACETAMINOPHEN 325 MG TAB PO PRN (21:15)
[2017-07-02] MEDS ORDERED: LACTULOSE SYRUP 20 GM/30 ML CUP PO PRN (21:15)
[2017-07-02] MEDS ORDERED: SENNOSIDES 8.6 MG TAB PO PRN (21:15)
[2017-07-02] MEDS ORDERED: BISACODYL 10 MG SUPP RECTAL PRN (21:15)
[2017-07-02] MEDS ORDERED: MAGNESIUM HYDROXIDE SUSP 30 ML CUP PO PRN (21:15)
[2017-07-02] MEDS ORDERED: ACETAMINOPHEN/HYDROcodone 325 MG/10 MG TAB PO PRN (21:15)
[2017-07-02] MEDS ORDERED: SODIUM CHLORIDE 0.9% FLUSH 10 ML FLUSH IV FLUSH PRN (21:15)
[2017-07-02] MEDS ORDERED: ONDANSETRON HCL 4 MG/2 ML VIAL IVP PRN (21:15)
[2017-07-02] MEDS ORDERED: ACETAMINOPHEN/HYDROcodone 325 MG/5 MG TAB PO PRN (21:15)
[2017-07-02] MEDS ORDERED: SODIUM CHLOR 0.9% 250 ML INJ 250 ML IV ONE (21:15)
--- NOTE | 2017-07-02 21:56 | HHI.HP ---
HPI Service [facility] Primary Care Physician No Primary Care Physician Admission Diagnosis Anemia; SVT Diagnoses: Chief Complaint: Heart palpitations Travel History International Travel<30 Days: No Contact w/Intl Traveler <30 Da: No Traveled to Known Affected Are: No History of Present Illness 41-year-old female with a history of hypertension, asthma, tobacco use and cocaine abuse presented to the ED with heart palpitations. EVAC had given patient 6mg of adenosine symptoms resolved. Patient states she was at home and developed heart palpitations and EVAC was called. She states she has been compliant with her BP meds but not her iron supplements. Patient states she does not like taking her iron supplements because the hard pills make her sick, she only likes the gel tabs. She denies any active chest pain, sob, fever or chills. She states she has not used recreational drugs in the past few days. Does not follow with a congregational care pastor or PCP. Last echo was completed in 2016 that showed LVH with EF 55-50%. Review of Systems Except as stated in HPI: all other systems reviewed are Neg Past Family Social History Past Medical History Hypertension Asthma Tobacco abuse Cocaine abuse Past Surgical History Hernia repair Back surgery Tubal ligation Reported Medications Reported Meds & Active Scripts Active Ferrous Sulfate 325 Mg (65 Mg Iron) Tablet 325 Mg PO DAILY Reported Amlodipine (Amlodipine Besylate) 5 Mg Tab 5 Mg PO DAILY Hydrochlorothiazide 12.5 Mg Cap 12.5 Mg PO DAILY Lisinopril 20 Mg Tab 20 Mg PO DAILY Allergies: Coded Allergies: No Known Allergies (Verified Allergy, Unknown, 07/02/17) Active Ordered Medications Current Medications Medications (Trade) Dose Ordered Sig/Fidelina Route Start Time Stop Time Status Last Admin (NS Flush) 2 ml UNSCH PRN IVF 07/02/17 20:00 Sodium Chloride 250 ml @ 15 mls/hr ONCE ONCE IV 07/02/17 21:15 07/03/17 13:54 (NS Flush) 2 ml UNSCH PRN IV FLUSH 07/02/17 21:15 (NS Flush) 2 ml BID IV FLUSH 07/03/17 09:00 (Zofran Inj) 4 mg Q6H PRN IVP 07/02/17 21:15 (Tylenol) 650 mg Q6H PRN PO 07/02/17 21:15 ([place] 5-325 Mg) 1 tab Q4H PRN PO 07/02/17 21:15 ([place] 10-325 Mg) 1 tab Q4H PRN PO 07/02/17 21:15 (Shelbi-Colace) 1 tab BID PO 07/03/17 09:00 (Milk Of Magnesia Liq) 30 ml Q12H PRN PO 07/02/17 21:15 (Senokot) 17.2 mg Q12H PRN PO 07/02/17 21:15 (Dulcolax Supp) 10 mg DAILY PRN RECTAL 07/02/17 21:15 (Lactulose Liq) 30 ml DAILY PRN PO 07/02/17 21:15 Family History Patient denies any family history, no heart disease or cancer Social History Tobacco use: 1/2 PPD Alcohol use: Denies Illicit drug use: cocaine Physical Exam Vital Signs Vital Signs Date Time Temp Pulse Resp B/P (MAP) Pulse Ox O2 Delivery O2 Flow Rate FiO2 07/02/17 19:56 98.0 76 20 158/91 (113) 98 Nasal Cannula 2.00 07/02/17 19:55 20 07/02/17 19:55 98.0 80 20 156/88 (110) 98 Room Air 158/91 (113) 07/02/17 19:54 Nasal Cannula 2.00 07/02/17 19:46 98.0 82 20 158/91 (113) 100 Physical Exam GENERAL: This is a well-nourished, well-developed patient, in no apparent distress. SKIN: No rashes, ecchymoses or lesions. Cool and dry. HEAD: Atraumatic. Normocephalic. EYES: Pupils equal round and reactive. Extraocular motions intact. ENT: Nose without bleeding, purulent drainage or septal hematoma. Airway patent. NECK: Trachea midline. No JVD or lymphadenopathy. CARDIOVASCULAR: Regular rate and rhythm without murmurs, gallops, or rubs. RESPIRATORY: Clear to auscultation. Breath sounds equal bilaterally. No wheezes , rales, or rhonchi. GASTROINTESTINAL: Abdomen soft, non-tender, nondistended. . No guarding. MUSCULOSKELETAL: Extremities without clubbing, cyanosis, or edema. No joint tenderness, effusion, or edema noted. No calf tenderness. NEUROLOGICAL: Awake and alert. Motor and sensory grossly within normal limits. Normal speech. Laboratory Laboratory Tests Test 07/02/17 20:00 White Blood Count 4.6 Red Blood Count 3.98 Hemoglobin 7.8 Hematocrit 25.7 Mean Corpuscular Volume 64.6 Mean Corpuscular Hemoglobin 19.6 Mean Corpuscular Hemoglobin Concent 30.3 Red Cell Distribution Width 20.1 Platelet Count 312 Mean Platelet Volume 8.5 Neutrophils (%) (Auto) 52.5 Lymphocytes (%) (Auto) 30.4 Monocytes (%) (Auto) 7.2 Eosinophils (%) (Auto) 8.4 Basophils (%) (Auto) 1.5 Neutrophils # (Auto) 2.4 Lymphocytes # (Auto) 1.4 Monocytes # (Auto) 0.3 Eosinophils # (Auto) 0.4 Basophils # (Auto) 0.1 CBC Comment DIFF FINAL Differential Comment Prothrombin Time 10.4 Prothromb Time International Ratio 1.0 Activated Partial Thromboplast Time 23.6 Blood Urea Nitrogen 10 Creatinine 0.93 Random Glucose 134 Calcium Level 8.2 Magnesium Level 1.9 Sodium Level 145 Potassium Level 3.4 Chloride Level 113 Carbon Dioxide Level 26.6 Anion Gap 5 Estimat Glomerular Filtration Rate 80 Total Creatine Kinase 191 Creatine Kinase MB 0.9 Troponin I LESS THAN 0.02 Result Diagram: 07/02/17199907/02/171999 Imaging Last Impressions Chest X-Ray 07/02/171946 Signed Impressions: Service Date/Time: Sunday, July 02, 2017 20:05 - CONCLUSION: No evidence of acute cardiopulmonary disease. Naren Tan MD Caprini VTE Risk Assessment Caprini VTE Risk Assessment: No/Low Risk (score <= 1) Caprini Risk Assessment Model Point Value = 1 Point Value = 2 Point Value = 3 Point Value = 5 Age 41-60 Minor surgery BMI > 25 kg/m2 Swollen legs Varicose veins or History of unexplained or recurrent spontaneous Oral contraceptives or hormone replacement Sepsis (< 1 month) Serious lung disease, including pneumonia (< 1 month) Abnormal pulmonary function Acute myocardial infarction Congestive heart failure (< 1 month) History of inflammatory bowel disease Medical patient at bed rest Age 61-74 Arthroscopic surgery Major open surgery (> 45 min) Laparoscopic surgery (> 45 min) Malignancy Confined to bed (> 72 hours) Immobilizing plaster cast Central venous access Age >= 75 History of VTE Family history of VTE Factor V Leiden Prothrombin [id number] Lupus anticoagulant Anticardiolipin antibodies Elevated serum homocysteine Heparin-induced thrombocytopenia Other congenital or acquired thrombophilia Stroke (< 1 month) Elective arthroplasty Hip, pelvis, or leg fracture Acute spinal cord injury (< 1 month) Prophylaxis Regimen Total Risk Factor Score Risk Level Prophylaxis Regimen 0-1 Low Early ambulation 2 Moderate Order ONE of the following: *Sequential Compression Device (SCD) *Heparin 5000 units SQ BID 3-4 Higher Order ONE of the following medications: *Heparin 5000 units SQ TID *Enoxaparin/Lovenox 40 mg SQ daily (WT < 150 kg, CrCl > 30 mL/min) *Enoxaparin/Lovenox 30 mg SQ daily (WT < 150 kg, CrCl > 10-29 mL/min) *Enoxaparin/Lovenox 30 mg SQ BID (WT < 150 kg, CrCl > 30 mL/min) AND/OR *Sequential Compression Device (SCD) 5 or more Highest Order ONE of the following medications: *Heparin 5000 units SQ TID (Preferred with Epidurals) *Enoxaparin/Lovenox 40 mg SQ daily (WT < 150 kg, CrCl > 30 mL/min) *Enoxaparin/Lovenox 30 mg SQ daily (WT < 150 kg, CrCl > 10-29 mL/min) *Enoxaparin/Lovenox 30 mg SQ BID (WT < 150 kg, CrCl > 30 mL/min) AND *Sequential Compression Device (SCD) Assessment and Plan Problem List: (1) Symptomatic anemia ICD Code: D64.9 - Anemia, unspecified Status: Acute (2) SVT (supraventricular tachycardia) ICD Code: I47.1 - Supraventricular tachycardia Status: Acute (3) Hypertension ICD Code: I10 - Essential (primary) hypertension Status: Chronic Assessment and Plan 41-year-old female with a history of hypertension, asthma, tobacco use and cocaine abuse presented to the ED with heart palpitations. EVAC had given patient 6mg of adenosine symptoms resolved. Symptomatic anemia with history of iron deficiency anemia Hemoglobin 7.8, baseline around 9.3 -Iron studies ordered -Resume home on iron supplementation -Transfuse 1 unit PRBCs -Repeat H&H in a.m. -Patient will need to take iron gel capsules as outpatient, not available in hospital, liquid form ordered in hospital SVT, currently resolved, patient received 6 mg of adenosine in route to the hospital -Monitor vitals -Patient with a history of cocaine abuse, and urine drug screen ordered Hypertension -Resume home medications amlodipine, lisinopril and hydrochlorothiazide. Tobacco/cocaine abuse -Encouraged to quit DVT prophylaxis: SCDs Discussed Condition With Patient and RN Yesy Peterson Jul 02, 2017 21:56
[2017-07-02] MEDS ORDERED: POTASSIUM CHLORIDE 20 MEQ CONTROLLED RELEASE TAB PO ONE (22:00)
[2017-07-02 22:08] LABS: % SATURATION IRON PROFILE 3.3 % (20-50); IRON (FE) 14 MCG/DL (50-170); TOTAL IRON BINDING CAPACITY 430 MCG/DL (250-450)
[2017-07-02 22:11] LABS: FERRITIN 2 NG/ML (8-252)
[2017-07-03 02:19] VITALS: BP 181/89; PULSE 69; RESP 18; TEMP 98.3; O2SAT 100
[2017-07-03 02:30] VITALS: BP 181/89; PULSE 69; RESP 18; TEMP 98.3; O2SAT 100
[2017-07-03] MEDS ORDERED: cloNIDine HCL 0.1 MG TAB PO ONE (03:00)
[2017-07-03 04:51] VITALS: BP 138/96; PULSE 64; RESP 16; TEMP 98.4; O2SAT 99
[2017-07-03 06:15] LABS: AUTOMATED NEUTROPHIL # 2.6 TH/MM3 (1.8-7.7); BASOPHIL # 0.1 TH/MM3 (0-0.2); EOSINOPHIL # 0.5 TH/MM3 (0-0.4); EOSINOPHIL % 8.9 % (0.0-4.0); HEMATOCRIT 26.2 % (35.0-46.0); LYMPH % 33.6 % (9.0-44.0); LYMPHOCYTE # 1.7 TH/MM3 (1.0-4.8); MEAN CORPUSCULAR HEMOGLOBIN 20.5 PG (27.0-34.0); MEAN CORPUSCULAR HGB CONC 30.6 % (32.0-36.0); MEAN PLATELET VOLUME 8.6 FL (7.0-11.0); MONOCYTE # 0.4 TH/MM3 (0-0.9); NEUT % 49.5 % (16.0-70.0); PLATELET COUNT 292 TH/MM3 (150-450); RED BLOOD COUNT 3.91 MIL/MM3 (4.00-5.30); RED CELL DISTRIBUTION WIDTH 22.3 % (11.6-17.2); WHITE BLOOD COUNT 5.2 TH/MM3 (4.0-11.0)
[2017-07-03 06:32] LABS: ALBUMIN 2.7 GM/DL (3.4-5.0); ALT (GPT) 13 U/L (10-53); AST (GOT) 15 U/L (15-37); BICARBONATE 26.6 MEQ/L (21.0-32.0); BLOOD UREA NITROGEN 8 MG/DL (7-18); CALCIUM 7.9 MG/DL (8.5-10.1); CHLORIDE 114 MEQ/L (98-107); CREATININE 0.88 MG/DL (0.50-1.00); GLOMERULAR FILTRATION RATE 85 ML/MIN (>89); GLUCOSE,RANDOM 90 MG/DL (74-106); SODIUM (NA) 146 MEQ/L (136-145)
[2017-07-03 06:34] LABS: ALKALINE PHOSPHATASE 50 U/L (45-117); TOTAL BILIRUBIN ADULT 0.2 MG/DL (0.2-1.0); TOTAL PROTEIN 5.8 GM/DL (6.4-8.2)
[2017-07-03 07:23] VITALS: BP 154/101; PULSE 51; RESP 16; TEMP 97.8; O2SAT 99
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
--- NOTE | 2017-07-03 08:35 | HHI.PR ---
Subjective Remarks in no acute distress. no sob, chest pain or dizziness. d/w the RN and no acute issues over night. Objective Vitals Vital Signs Date Time Temp Pulse Resp B/P (MAP) Pulse Ox O2 Delivery O2 Flow Rate FiO2 07/03/17 07:23 97.8 51 16 154/101 (118) 99 07/03/17 04:51 98.4 64 16 138/96 (110) 99 07/03/17 02:30 98.3 69 18 181/89 (119) 100 07/03/17 02:19 98.3 69 18 181/89 100 07/02/17 23:13 98.3 60 18 141/70 (93) 100 07/02/17 23:12 98.3 60 18 141/70 100 07/02/17 22:57 98.4 65 18 157/89 100 07/02/17 22:33 07/02/17 22:13 98.6 70 16 147/82 (103) 100 07/02/17 19:56 98.0 76 20 158/91 (113) 98 Nasal Cannula 2.00 07/02/17 19:55 20 07/02/17 19:55 98.0 80 20 156/88 (110) 98 Room Air 158/91 (113) 07/02/17 19:54 Nasal Cannula 2.00 07/02/17 19:46 98.0 82 20 158/91 (113) 100 I/O 07/02/17 07/02/17 07/02/17 07/03/17 07/03/17 07/03/17 07:00 15:00 23:00 07:00 15:00 23:00 Intake Total 10 ml 410 ml Balance 10 ml 410 ml Intake Packed Cells 400 ml Blood Product IV Normal Saline Flush 10 ml 10 ml # Voids 2 Result Diagram: 07/03/1752607/03/17526 Imaging Last Impressions Chest X-Ray 07/02/171946 Signed Impressions: Service Date/Time: Sunday, July 02, 2017 20:05 - CONCLUSION: No evidence of acute cardiopulmonary disease. Naren Tan MD Objective Remarks GENERAL: This is a well-nourished, well-developed patient, in no apparent distress. CARDIOVASCULAR: Regular rate and regular rhythm without murmurs, gallops, or rubs. RESPIRATORY: Clear to auscultation. Breath sounds equal bilaterally. No wheezes , rales, or rhonchi. GASTROINTESTINAL: Abdomen soft, non-tender, nondistended. Normal, active bowel sounds MUSCULOSKELETAL: Extremities without clubbing, cyanosis, or edema. NEURO: Alert & Oriented x4 to person, place, time, situation. Moves all ext x4 Medications and IVs Inpatient Medications Acetaminophen (Tylenol) 650 mg Q6H PRN PO FEVER/PAIN SCALE 1 TO 2; Start at 21:15 Acetaminophen/ Hydrocodone Bitart ([place] 5-325 Mg) 1 tab Q4H PRN PO PAIN SCALE 3 TO 5; Start 07/02/17 at 21:15 Acetaminophen/ Hydrocodone Bitart ([place] 10-325 Mg) 1 tab Q4H PRN PO PAIN SCALE 6 TO 10; Start 07/02/17 at 21:15 Amlodipine Besylate (Norvasc) 5 mg DAILY PO ; Start 07/03/17 at 09:00 Aspirin (Aspirin) 325 mg ONCE ONCE PO Last administered on 07/02/17at 20:01; Start 07/02/17 at 20:00; Stop 07/02/17 at 20:01; Status DC Bisacodyl (Dulcolax Supp) 10 mg DAILY PRN RECTAL SEVERE CONSITIPATION; Start at 21:15 Clonidine (Catapres) 0.1 mg ONCE ONCE PO Last administered on 07/03/17at 03:28 ; Start 07/03/17 at 03:00; Stop 07/03/17 at 03:04; Status DC Ferrous Sulfate (Ferrous Sulfate Liq) 300 mg DAILY PO ; Start 07/03/17 at 09:00 Ferrous Sulfate (Ferrous Sulfate) 325 mg DAILY PO ; Start 07/03/17 at 09:00; Stop 07/03/17 at 09:00; Status DC Hydrochlorothiazide (Microzide) 12.5 mg DAILY PO ; Start 07/03/17 at 09:00 Lactulose (Lactulose Liq) 30 ml DAILY PRN PO SEVERE CONSITIPATION; Start at 21:15 Lisinopril (Prinivil) 20 mg DAILY PO ; Start 07/03/17 at 09:00 Magnesium Hydroxide (Milk Of Magnesia Liq) 30 ml Q12H PRN PO Mild constipation ; Start 07/02/17 at 21:15 Ondansetron HCl (Zofran Inj) 4 mg Q6H PRN IVP NAUSEA OR VOMITING; Start at 21:15 Potassium Chloride (KCl) 20 meq ONCE ONCE PO Last administered on 07/02/17at 22 :48; Start 07/02/17 at 22:00; Stop 07/02/17 at 22:01; Status DC Senna/Docusate Sodium (Shelbi-Colace) 1 tab BID PO ; Start 07/03/17 at 09:00 Sennosides (Senokot) 17.2 mg Q12H PRN PO Moderate constipation; Start 07/02/17 at 21:15 Sodium Chloride (NS Flush) 2 ml BID IV FLUSH ; Start 07/03/17 at 09:00 A/P Problem List: (1) Symptomatic anemia ICD Code: D64.9 - Anemia, unspecified Status: Acute (2) SVT (supraventricular tachycardia) ICD Code: I47.1 - Supraventricular tachycardia Status: Acute (3) Hypertension ICD Code: I10 - Essential (primary) hypertension Status: Chronic Assessment and Plan Symptomatic anemia with history of iron deficiency anemia Hemoglobin 7.8- -Resume home on iron supplementation -Transfused 1 unit PRBCs SVT, currently resolved, patient received 6 mg of adenosine in route to the hospital -Patient with a history of cocaine abuse, and urine drug screen ordered Hypertension -Resumed home medications amlodipine, lisinopril and hydrochlorothiazide. Tobacco/cocaine abuse -Encouraged to quit DVT prophylaxis: SCDs Discharge Planning dc home today. f/u ; pcp. see med list. d/w the patient and RNAmanuel Contreras MD Jul 03, 2017 08:35
[2017-07-03] MEDS ORDERED: FERR325T18 PO (08:36)
[2017-07-03] MEDS ORDERED: HYDROCHLOROTHIAZIDE 12.5 MG CAP PO SCH (09:00)
[2017-07-03] MEDS ORDERED: DOCUSATE SODIUM 50 MG/SENNA 8.6 MG TAB PO SCH (09:00)
[2017-07-03] MEDS ORDERED: LISINOPRIL 20 MG TAB PO SCH (09:00)
[2017-07-03] MEDS ORDERED: FERROUS SULFATE 325 MG (65 MG ELEMENTAL IRON) TAB PO SCH (09:00)
[2017-07-03] MEDS ORDERED: amLODIPine BESYLATE 5 MG TAB PO SCH (09:00)
[2017-07-03] MEDS ORDERED: SODIUM CHLORIDE 0.9% FLUSH 10 ML FLUSH IV FLUSH SCH (09:00)
[2017-07-03] MEDS ORDERED: FERROUS SULFATE 300 MG /5ML UDC PO SCH (09:00)
--- NOTE | 2017-07-03 14:24 | EKG ---
Date Performed: 07/02/2017 Time Performed: 19:48:13 PTAGE: 41 years EKG: Sinus rhythm POSSIBLE LEFT ATRIAL ENLARGEMENT NONSPECIFIC T-WAVE ABNORMALITY BORDERLINE ECG Since PREVIOUS TRACING , no significant change noted PREVIOUS TRACIN04/03/2017 18.21 DOCTOR: Lizzie Gregorio Interpretating Date/Time 07/03/2017 14:23:09
== END 2017-07-03 12:20 | disposition home or self-care (01) ==
LOC: NEPC 19:39 → NEDA 21:14 → NEPGCP 22:01
PROVIDERS: ADMIT Internal Medicine; ATTEND Internal Medicine
DX: D64.9 Anemia, unspecified (principal); I47.1 Supraventricular tachycardia; I10 Essential (primary) hypertension; R94.31 Abnormal electrocardiogram [ECG] [EKG]; E87.6 Hypokalemia; E78.00 Pure hypercholesterolemia, unspecified; F14.10 Cocaine abuse, uncomplicated; J45.909 Unspecified asthma, uncomplicated; Z72.0 Tobacco use
CPT/HCPCS: 36430; 71045; 80048; 80053; 80307; 82550; 82552; 82728; 83540; 83550; 83735; 84484; 85025; 85610; 85730; 86850; 86900; 86901; 86920; 93005; 96360; 99285; G0378; J7050; P9016

== ENCOUNTER 2017-07-16 13:53 | Emergency (ER) | payer MEDICAID ==
[~2017-07-16] VITALS: Ht 170.2 cm; Wt 75.0 kg
[~2017-07-16 13:53] MED LIST changes: +AMLO5TAB2 PO
[2017-07-16 13:56] VITALS: BP 136/74; PULSE 70; RESP 18; TEMP 98.3; O2SAT 99
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
== END 2017-07-16 16:24 | disposition home or self-care (01) ==
LOC: NEPD 13:53
DX: S20.212A Contusion of left front wall of thorax, initial encounter (principal); I10 Essential (primary) hypertension; F17.200 Nicotine dependence, unspecified, uncomplicated; Y04.0XXA Assault by unarmed brawl or fight, initial encounter
CPT/HCPCS: 71045; 99283

== ENCOUNTER 2017-07-29 00:24 | Emergency (ER) | payer MEDICAID ==
[~2017-07-29] VITALS: Ht 170.2 cm; Wt 75.0 kg
[2017-07-29 00:39] VITALS: BP 154/98; PULSE 93; RESP 18; TEMP 98.6; O2SAT 99
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
[2017-07-29] MEDS ORDERED: SODIUM CHLOR 0.9% 1000 ML INJ 1,000 ML IV ONE (03:00)
[2017-07-29 03:16] LABS: AUTOMATED NEUTROPHIL # 6.7 TH/MM3 (1.8-7.7); BASOPHIL # 0.1 TH/MM3 (0-0.2); BASOPHIL % 0.6 % (0.0-2.0); EOSINOPHIL # 0.1 TH/MM3 (0-0.4); EOSINOPHIL % 1.7 % (0.0-4.0); HEMATOCRIT 27.6 % (35.0-46.0); HEMOGLOBIN 8.5 GM/DL (11.6-15.3); LYMPH % 13.1 % (9.0-44.0); LYMPHOCYTE # 1.1 TH/MM3 (1.0-4.8); MEAN CELL VOLUME 67.2 FL (80.0-100.0); MEAN CORPUSCULAR HEMOGLOBIN 20.6 PG (27.0-34.0); MEAN CORPUSCULAR HGB CONC 30.7 % (32.0-36.0); MEAN PLATELET VOLUME 8.4 FL (7.0-11.0); MONO % 5.8 % (0.0-8.0); MONOCYTE # 0.5 TH/MM3 (0-0.9); NEUT % 78.8 % (16.0-70.0); PLATELET COUNT 375 TH/MM3 (150-450); RED BLOOD COUNT 4.11 MIL/MM3 (4.00-5.30); RED CELL DISTRIBUTION WIDTH 23.8 % (11.6-17.2); WHITE BLOOD COUNT 8.5 TH/MM3 (4.0-11.0)
[2017-07-29 03:35] LABS: ALBUMIN 3.4 GM/DL (3.4-5.0); ALT (GPT) 13 U/L (10-53); AST (GOT) 17 U/L (15-37); BICARBONATE 25.1 MEQ/L (21.0-32.0); BLOOD UREA NITROGEN 11 MG/DL (7-18); CHLORIDE 111 MEQ/L (98-107); CREATININE 1.11 MG/DL (0.50-1.00); GLOMERULAR FILTRATION RATE 65 ML/MIN (>89); GLUCOSE,RANDOM 86 MG/DL (74-106); SODIUM (NA) 144 MEQ/L (136-145)
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
[2017-07-29 03:37] LABS: ALKALINE PHOSPHATASE 68 U/L (45-117); TOTAL BILIRUBIN ADULT 0.2 MG/DL (0.2-1.0); TOTAL PROTEIN 6.9 GM/DL (6.4-8.2)
[2017-07-29 04:28] VITALS: BP_SYST 147; BP_SYST 155; BP_SYST 156; BP_DIAS 102; BP_DIAS 103; RESP 16
[2017-07-29 06:08] LABS: BILIRUBIN, URINE NEG (NEG); BLOOD, URINE NEG (NEG); GLUCOSE,URINE NEG (NEG); KETONE, URINE NEG (NEG); NITRITE,URINE NEG (NEG); SQUAMOUS EPITHELIAL CELL URINE 1 /hpf (0-5); URINE COLOR LIGHT-YELLOW (YELLW/STRAW); URINE LEUKOCYTE ESTERASE NEG (NEG)
--- NOTE | 2017-07-30 08:26 | EKG ---
Date Performed: 07/29/2017 Time Performed: 02:48:13 PTAGE: 41 years EKG: Sinus rhythm NORMAL ECG PREVIOUS TRACING : 07/02/2017 19.48 DOCTOR: Cody Montoya Interpretating Date/Time 07/30/2017 08:25:15
== END 2017-07-29 06:34 | disposition home or self-care (01) ==
LOC: NEPE 00:24
DX: R55 Syncope and collapse (principal); S09.90XA Unspecified injury of head, initial encounter; I10 Essential (primary) hypertension; F17.200 Nicotine dependence, unspecified, uncomplicated; X58.XXXA Exposure to other specified factors, initial encounter; Y93.01 Activity, walking, marching and hiking
CPT/HCPCS: 70450; 80053; 81001; 85025; 93005; 99285; J7030

== ENCOUNTER 2018-01-18 21:43 | Inpatient (IN) ==
--- NOTE | 2018-01-18 22:12 | ED ---
HPI General Chief Complaint: Chest Pain Stated Complaint: Patient states chest pain Time Seen by Provider: 01/18/18 22:04 Source: patient Mode of arrival: ambulatory Limitations: no limitations History of Present Illness HPI narrative: 42-year-old female with a history of anemia, HTN, and asthma presents to emergency department for evaluation of heart palpitations, chest pain, shortness of breath that is been present for couple of days. She states that today has been worse and feels as if her heart is going to pound out of her chest. Says the pain is midsternal, nonradiating, and sharp and stabbing. Moderate in severity. She denies palliative or provocative factors. She denies history of this previously. Patient states that she occasionally drinks alcohol. She does smoke tobacco but denies illicit drug use. Says she has a strong family history of hypertension but denies cardiac history. Patient states she does not currently have a primary care physician. She denies fever, chills, nausea, vomiting. Denies heavy menstrual cycles or rectal bleeding. She states that she has had a blood transfusion a couple months ago as a result of her severe anemia but denies symptoms similar to today. Related Data Home Medications Medication Instructions Recorded Confirmed hydrochlorothiazide 12.5 mg PO DAILY 09/18/17 09/18/17 lisinopril 20 mg PO DAILY 09/18/17 09/18/17 amlodipine mg PO DAILY 01/19/18 Allergies Allergy/AdvReac Type Severity Reaction Status Date / Time No Known Allergies Allergy Verified 09/18/17 22:34 Review of Systems ROS: all other systems reviewed are negative [facility] Medical History Medical History Anemia (Acute) Asthma (Acute) Hypertension (Acute) Social History Social History Substance History: No History of Abuse Smoking Status: Never smoker Tobacco Type: Cigarettes How Often Do You Have a Drink Containing Alcohol: Monthly or less Recent Travel in [facility] within the Last 8 Weeks: No Recent Out of Country Travel within the Last 8 Weeks: No Immunization History Tetanus Immunization Year if Known: 2016 Exam Narrative Exam Narrative: GENERAL: Well-developed, well-nourished, slightly anxious SKIN: Focused skin assessment warm/dry. Healing vo to the chest HEAD: Atraumatic. Normocephalic. EYES: Pupils equal and round. No scleral icterus. No injection or drainage. ENT: No nasal bleeding or discharge. Mucous membranes pink and moist. NECK: Trachea midline. No JVD. No lymphadenopathy CARDIOVASCULAR: Regular rate and rhythm. No murmur appreciated. RESPIRATORY: No accessory muscle use. Clear to auscultation. Breath sounds equal bilaterally. Slight wheezing diffusely GASTROINTESTINAL: Abdomen soft, non-tender, nondistended. Hepatic and splenic margins not palpable. MUSCULOSKELETAL: No obvious deformities. No clubbing. No cyanosis. No edema. No tenderness to palpation of the calves NEUROLOGICAL: Awake and alert. No obvious cranial nerve deficits. Motor grossly within normal limits. Normal speech. PSYCHIATRIC: Appropriate mood and affect; insight and judgment normal. Course Initial Documented Vital Signs Temperature 98.6 F 01/18/18 21:58 Pulse Rate 153 H 01/18/18 21:58 Respiratory Rate 20 01/18/18 21:58 Blood Pressure 132/69 01/18/18 21:58 Pulse Oximetry 100 01/18/18 21:58 Last Documented Vital Signs Temperature 98.6 F 01/18/18 21:58 Pulse Rate 70 01/19/18 00:00 Respiratory Rate 16 01/19/18 00:00 Blood Pressure 148/89 H 01/19/18 00:00 Pulse Oximetry 100 01/19/18 00:00 Critical Care Time Critical Care Time: Yes Total Critical Care Time: 20 Attestation: Time to perform other separately billable procedures was not included in the critical care time. My time did not include minutes spent treating any other patients simultaneously or on activities that did not directly contribute to the patient's treatment. The services I provided to this patient were to treat and/or prevent clinically significant deterioration due to tachycardia I provided critical care services requiring my management, as noted below: Chart data review, documentation time, medication orders and management, vital sign assessments/reviewing monitor data, ordering and reviewing lab tests, ordering and interpreting/reviewing x-rays and diagnostic studies, care of the patient and discussion of the patient with the admitting physicians Medical Decision Making SIMRAN Attestation SIMRAN supervised visit: Yes Attestation: I, Dr. Haas, have reviewed the advance practice practitioner's documentation and am in agreement, met with the patient face to face, made the diagnosis, and the medical decision making was done by me. *My assessment and Findings: This patient presents with tachycardia. She has a regular tachycardia at about 150. A Cardizem bolus has been ordered. Please see Janet Gonsalez PA-C's note for a more detailed H&P, final diagnosis and disposition MDM Narrative Medical decision making narrative: 42y female presents to the ED for evaluation of chest pain and shortness of breath that has been present for a couple of days. It worsened today so she decided to come in today for evaluation. A brief review of the EMR demonstrates that patient has had SVT previously, aborted with adenosine. EKG appeared regular but as stated in my attending's note, no discernable p- waves. Administration of Cardizem aborted rhythm to rate in the 60s. Sinus rhythm rate 69 without STEMI changes, occasional supraventricular beats. Labs are notable for WBC 7.5, H/H 7.4/24.6, Plt 240, INR 1.0, K 3.9, BUN/Cr 13/ 0.90, troponin 0.02 Will dispo after urine. @1211 pt says she walked to the bathroom and felt short of breath and continued having chest pain. Will admit for chest pain and shortness of breath. Administered ASA> Medical Screen Exam Complete: Yes Emergency Medical Condition: Yes Differential Diagnosis Differential Diagnosis: SVT, cocaine abuse, A fib, anemia, ACS Medical Records Medical records reviewed: Yes I reviewed the patient's medical records. Patient presented to the emergency department July 03 with similar symptoms. At that time, she was treated for SVT, given adenosine with resolution of her symptoms. She had an echocardiogram December 2016 EF 50-55% with mild LVH. She had a nuc stress 12/2016 which was negative for ischemia. There were also note stating that she is used Tequila and cocaine previously which is contrary to what patient told me today. Lab Data Result diagrams: 01/18/18 22:25 01/18/18 22:25 Lab Results 01/18/18 01/18/18 Range/Units 22:25 22:25 WBC 7.5 (4.0-11.0) th/mm3 RBC 3.91 L (4.00-5.30) mil/mm3 Hgb 7.4 L (11.6-15.3) gm/dL Hct 24.6 L (35.0-46.0) % MCV 62.9 L (80.0-100.0) fL MCH 19.0 L (27.0-34.0) pg MCHC 30.2 L (32.0-36.0) % RDW 19.8 H (11.6-17.2) % Plt Count 240 (150-450) th/mm3 MPV 8.8 (7.0-11.0) fL Neut % (Auto) 56.8 (16.0-70.0) % Lymph % (Auto) 31.3 (9.0-44.0) % Thomas % (Auto) 7.0 (0.0-8.0) % Eos % (Auto) 4.0 (0.0-4.0) % Baso % (Auto) 0.9 (0.0-2.0) % Neut # (Auto) 4.3 (1.8-7.7) th/mm3 Lymph # (Auto) 2.4 (1.0-4.8) th/mm3 Thomas # (Auto) 0.5 (0.0-0.9) th/mm3 Eos # (Auto) 0.3 (0.0-0.4) th/mm3 Baso # (Auto) 0.1 (0.0-0.2) th/mm3 WBC Differential . Differential Comment Auto diff final Sodium 142 (136-145) meq/L Potassium 3.9 (3.5-5.1) meq/L Chloride 109 H (98-107) meq/L Carbon Dioxide 26.5 (21.0-32.0) meq/L Anion Gap 7 (5-15) meq/L BUN 13 (7-18) mg/dL Creatinine 0.90 (0.50-1.00) mg/dL Estimated GFR 82 L (>89) mL/min Random Glucose 91 (74-106) mg/dL Calcium 8.1 L (8.5-10.1) mg/dL Total Bilirubin 0.1 L (0.2-1.0) mg/dL AST 22 (15-37) U/L ALT 25 (10-53) U/L Alkaline Phosphatase 69 (45-117) U/L Troponin I 0.02 (0.02-0.05) ng/mL Total Protein 6.8 (6.4-8.2) g/dL Albumin 3.1 L (3.4-5.0) g/dL TSH 2.530 (0.358-3.740) uIU/mL Imaging Data Radiologist's impression: Chest X-Ray 01/18/18 22:08 CONCLUSION: No acute findings. ECG Data EKG Prior to Arrival: No Attestation: I personally reviewed and interpreted this ECG as follows: (EKG shows a regular rhythm. The computer is reading it as sinus tachycardia. I cannot say for sure that I see P waves. Rate is 136. No ST segment elevation or depression.) Discharge Plan Discharge Condition Condition: Stable Physicians Team ED Provider: Yue Haas ED Midlevel Provider: Janet Gonsalez Primary Care Provider: Primary Care [facility] Rxs /Orders / Referrals /Forms Prescriptions: No Action lisinopril 20 mg Tablet 20 mg PO DAILY RF: 0 hydrochlorothiazide 12.5 mg Tablet 12.5 mg PO DAILY RF: 0 Discharge Instructions Patient Printed Instructions: Chest Pain (ED) Status ED Status: With Doctor
[2018-01-18] MEDS ORDERED: Sod Chloride 0.9% Inj 1,000 ML IV.SIG SCH (22:30)
--- NOTE | 2018-01-18 22:35 | XR ---
EXAM DATE: 01/18/2018 10:19 PM EDT AGE/SEX: 42 years / Female INDICATIONS: Chest pain with shortness of breath for 2 days. CLINICAL DATA: This is the patient's initial encounter. Patient reports that signs and symptoms have been present for 2 days and indicates a pain score of 3/10. MEDICAL/SURGICAL HISTORY: Anemia. Asthma. Hypertension. Tubal ligation. [place] [facility] [place] . FINDINGS: A single AP view of the chest demonstrates the lungs to be symmetrically aerated without evidence of mass, infiltrate or effusion. The cardiomediastinal contours are unremarkable. Osseous structures a re intact. CONCLUSION: No acute findings. Electronically signed by: Souleymane Lang MD 01/18/2018 10:34 PM EDT
[2018-01-18 22:37] LABS: Baso # (Auto) 0.1 th/mm3 (0.0-0.2); Baso % (Auto) 0.9 % (0.0-2.0); Eos # (Auto) 0.3 th/mm3 (0.0-0.4); Hematocrit 24.6 % (35.0-46.0); Hemoglobin 7.4 gm/dL (11.6-15.3); Lymph # (Auto) 2.4 th/mm3 (1.0-4.8); Lymph % (Auto) 31.3 % (9.0-44.0); Mean Corpuscular Volume 62.9 fL (80.0-100.0); Mean Platelet Volume 8.8 fL (7.0-11.0); Mono # (Auto) 0.5 th/mm3 (0.0-0.9); Neut # (Auto) 4.3 th/mm3 (1.8-7.7); Neut % (Auto) 56.8 % (16.0-70.0); Platelet Count 240 th/mm3 (150-450); Red Blood Count 3.91 mil/mm3 (4.00-5.30); Red Cell Distribution Width 19.8 % (11.6-17.2); White Blood Count 7.5 th/mm3 (4.0-11.0)
[2018-01-18 22:43] LABS: Mean Corpuscular HGB Conc 30.2 % (32.0-36.0)
[2018-01-18 22:57] LABS: Albumin 3.1 g/dL (3.4-5.0); Anion Gap 7 meq/L (5-15); Aspartate Aminotransferase 22 U/L (15-37); Blood Urea Nitrogen 13 mg/dL (7-18); Calcium 8.1 mg/dL (8.5-10.1); Carbon Dioxide 26.5 meq/L (21.0-32.0); Chloride 109 meq/L (98-107); Glomerular Filtration Rate 82 mL/min (>89); Glucose,Random 91 mg/dL (74-106); Potassium 3.9 meq/L (3.5-5.1); Sodium 142 meq/L (136-145)
[2018-01-18 22:58] LABS: Alanine Aminotransferase 25 U/L (10-53)
[2018-01-18 23:07] LABS: Alkaline Phosphatase 69 U/L (45-117); Total Protein 6.8 g/dL (6.4-8.2); Troponin I 0.02 ng/mL (0.02-0.05)
[2018-01-19 00:27] LABS: Amphetamine Screen,Urine Neg (Neg); Barbiturate Screen,Urine Neg (Neg); Cannabinoid Screen,Urine Neg (Neg); Cocaine Screen,Urine Neg (Neg)
[2018-01-19 00:28] LABS: Opiate Screen,Urine Neg (Neg)
[2018-01-19] MEDS ORDERED: Bisacodyl 10 MG Supp RECTAL PRN (01:13)
[2018-01-19] MEDS ORDERED: Sodium Chloride 0.9% 2 ML Flush PRN IV.FLUSH (01:20)
[2018-01-19] MEDS: dilTIAZem 30 MG Tablet PO SCH ×3 (01:42→13:24)
[2018-01-19] MEDS ORDERED: Sodium Chlor 0.9% Inj 250 ML IV.SIG SCH (02:00)
[2018-01-19] MEDS: Sod Chloride 0.9% Inj 1,000 ML IV.CONT SCH ×4 (04:32→22:55)
[2018-01-19] MEDS: Sodium Chloride 0.9% 2 ML Flush BID IV.FLUSH SCH ×2 (10:00→22:55)
[2018-01-19] MEDS ORDERED: Regadenoson Inj 0.4 MG/5 ML Syringe IV.PUSH ONE (11:08)
--- NOTE | 2018-01-19 13:06 | P.HPIM ---
History of Present Illness Primary Care Physician: No Primary Care Physician History of Present Illness: Mrs. Campbell is a 42-year-old female. She came in secondary to tachycardia with chest pain. She says she has a previous history of this. Overnight she is provided with diltiazem. This has resolved her tachycardia. Chest pain is also resolved. Based on EKG findings SVT is a suspicious etiology. This was discussed with the patient. Long-term treatment of beta-willem is recommended. To complete workup regarding her chest pain stress test is pending. Inpatient Certification: I certify that the inpatient services were ordered in accordance with Medicare regulations governing the order. This includes certification that hospital inpatient services are reasonable and necessary and in the case of services not specified as inpatient-only under 42 CFR 419.22(n), that they are appropriately provided as inpatient services in accordance to with the 2-midnight benchmark under 43 CFR 412.3(e) Estimated Total Length of Stay (Days): 2 Plans for Post Hospital Care: Home Review of Systems Constitutional: No fevers, no chills no night sweats, no fatigue, no weakness Eyes: No eye pain, no blurry vision, no loss of vision ENT: No sore throat, no ear pain, no rhinorrhea Cardiovascular: chest pain, tachycardia, palpitations, no shortness of breath, no syncope Respiratory: No wheezing, no cough, no shortness of breath Gastrointestinal: No abdominal pain, no black tarry stools, no bright red blood per rectum, no vomiting, no diarrhea Musculoskeletal: No joint pain, no muscle cramps, no stiffness Integumentary: No rash, no ulcers, no drainage Neurologic: No sensory loss, no loss of motor function, no dizziness Psychiatric: No behavioral changes, no hallucinations, no suicidal ideations [facility] - History History Provided By: Patient - Medical History Medical History: Medical History (Last Reviewed 01/18/18 @ 22:18 by STORMY Tellez) Anemia Asthma Hypertension - Surgical History Surgical History: Surgical History (Last Reviewed 01/18/18 @ 22:13 by Clotilde Ozuna RN) Previous back surgery - Family History Family History: Family History (Last Updated 01/19/18 @ 13:02 by Artemio Hadley MD) Other Osteoarthritis - Tobacco History Second Hand Smoke Exposure: Yes Tobacco Use In Past 30 Days: Yes Smoking Status: Current every day smoker Tobacco Type: Cigarettes - Alcohol History How Often Do You Have a Drink Containing Alcohol: 2 to 4 times a month - Substance Use History Substance History: No History of Abuse - Travel History Recent Travel in the [place] Within the Last 8 Weeks: No Recent Travel Out of the Country Within the Last 8 Weeks: No - Immunization History Tetanus Immunization: <5 Years Tetanus Immunization Year if Known: 2015 Medications and Allergies Active Medications: Active Medications Al Hydroxide/Mg Hydroxide (Milk Of Magnesia Liq) 30 ml PO Q12H PRN PRN Reason: Mild Constipation Bisacodyl (Dulcolax Supp) 10 mg RECTAL DAILY PRN PRN Reason: SEVERE CONSITIPATION Diltiazem HCl (Cardizem) 30 mg PO QID [facility] Last Admin: 01/19/18 10:00 Dose: 30 mg Sodium Chloride (Ns Inj) 1,000 mls @ 100 mls/hr IV.CONT .Q10H [facility] Last Admin: 01/19/18 04:32 Dose: Not Given Sodium Chloride (Ns Inj) 250 mls @ 15 mls/hr IV.SIG ONCE [facility] Stop: 01/19/18 18:39 Last Infusion: 01/19/18 07:50 Dose: Infused Lactulose (Lactulose Liq) 30 ml PO DAILY PRN PRN Reason: SEVERE CONSITIPATION Sennosides (Senokot) 17.2 mg PO Q12H PRN PRN Reason: Moderate Constipation Sodium Chloride (Ns Flush) 2 ml IV.FLUSH BID [facility] Last Admin: 01/19/18 10:00 Dose: 2 ml Sodium Chloride (Ns Flush) 2 ml IV.FLUSH PRN PRN PRN Reason: FLUSH AFTER USING IV ACCESS Allergies Allergy/AdvReac Type Severity Reaction Status Date / Time No Known Allergies Allergy Verified 09/18/17 22:34 Home Medications Medication Instructions Recorded Confirmed Type hydrochlorothiazide 12.5 mg PO DAILY 09/18/17 01/19/18 History lisinopril 20 mg PO DAILY 09/18/17 01/19/18 History amlodipine mg PO DAILY 01/19/18 History Exam Vital signs: Vital Signs 01/18/18 21:58 01/18/18 22:13 01/18/18 22:54 Temperature 98.6 F Pulse Rate 153 H 140 H 62 Respiratory Rate 20 18 16 Blood Pressure 132/69 137/105 H 125/82 Pulse Oximetry 100 100 100 01/19/18 00:00 01/19/18 03:12 01/19/18 03:30 Temperature 98.4 F 98.5 F Pulse Rate 70 68 72 Respiratory Rate 16 16 16 Blood Pressure 148/89 H 120/70 132/85 Pulse Oximetry 100 100 100 01/19/18 04:00 01/19/18 05:57 01/19/18 06:00 Temperature 98.3 F 98.4 F 98.4 F Pulse Rate 66 61 63 Respiratory Rate 18 18 18 Blood Pressure 134/79 140/76 140/76 Pulse Oximetry 99 100 100 01/19/18 06:16 01/19/18 08:42 01/19/18 09:52 Temperature 98.2 F 98.3 F Pulse Rate 63 60 Respiratory Rate 18 20 16 Blood Pressure 142/86 H 149/82 H Pulse Oximetry 100 94 L 01/19/18 10:41 Temperature Pulse Rate Respiratory Rate Blood Pressure Pulse Oximetry 94 L Intake & Output 01/18/18 01/19/18 01/19/18 18:59 06:59 18:59 Intake Total 1400 / 1400 415 / 415 Balance 1400 / 1400 415 / 415 Weight 72 kg Intake: IV 1000 / 1000 15 / 15 NS Inj 1,000 ML @ 1000 mls/hr 1000 / 1000 IV.SIG BOLUS KRISHNA Rx#:[id number] NS Inj 250 ML @ 15 mls/hr IV. 15 / 15 SIG ONCE KRISHNA Rx#:[id number] Intake (Blood Product) Amt 400 / 400 400 / 400 Rbc As-3 Leukoreduced Unit 400 / 400 [id number] Rbc As-3 Leukoreduced Unit 0 / 0 400 / 400 [id number] Other: # Voids 1 Weight On Admission 72 kg Narrative: GENERAL: NAD, A&Ox3 HEAD: Normocephalic. NECK: Supple, trachea midline. No lymphadenopathy. EYES: No scleral icterus. No injection or drainage. CARDIOVASCULAR: Regular rate and rhythm without murmurs, gallops, or rubs. RESPIRATORY: Breath sounds equal bilaterally. No accessory muscle use. GASTROINTESTINAL: Abdomen soft, non-tender, nondistended. MUSCULOSKELETAL: No cyanosis, or edema. SKIN: Warm and dry. NEURO: No focal neurological deficits. Results - Labs CBC & Chem 7: 01/18/18 22:25 01/18/18 22:25 Labs: Short CBC 01/18/18 Range/Units 22:25 WBC 7.5 (4.0-11.0) th/mm3 Hgb 7.4 L (11.6-15.3) gm/dL Hct 24.6 L (35.0-46.0) % Plt Count 240 (150-450) th/mm3 BMP 01/18/18 22:25 Sodium 142 Potassium 3.9 Chloride 109 H Carbon Dioxide 26.5 BUN 13 Creatinine 0.90 Calcium 8.1 L Cardiac Enzymes 01/18/18 01/19/18 01/19/18 Range/Units 22:25 00:15 06:20 Troponin I 0.02 0.03 0.02 (0.02-0.05) ng/mL Liver Function 01/18/18 Range/Units 22:25 Total Bilirubin 0.1 L (0.2-1.0) mg/dL AST 22 (15-37) U/L ALT 25 (10-53) U/L Alkaline Phosphatase 69 (45-117) U/L Albumin 3.1 L (3.4-5.0) g/dL - Imaging Impressions Chest X-Ray 01/18/18 22:08 CONCLUSION: No acute findings. Caprini VTE Risk Assessment Caprini VTE Risk Assessment: No/Low Risk (score <= 1) Caprini Risk Assessment Model: Point Value = 1 Point Value = 2 Point Value = 3 Point Value = 5 Age 41-60 Minor surgery BMI > 25 kg/m2 Swollen legs Varicose veins or History of unexplained or recurrent spontaneous Oral contraceptives or hormone replacement Sepsis (< 1 month) Serious lung disease, including pneumonia (< 1 month) Abnormal pulmonary function Acute myocardial infarction Congestive heart failure (< 1 month) History of inflammatory bowel disease Medical patient at bed rest Age 61-74 Arthroscopic surgery Major open surgery (> 45 min) Laparoscopic surgery (> 45 min) Malignancy Confined to bed (> 72 hours) Immobilizing plaster cast Central venous access Age >= 75 History of VTE Family history of VTE Factor V Leiden Prothrombin [id number] Lupus anticoagulant Anticardiolipin antibodies Elevated serum homocysteine Heparin-induced thrombocytopenia Other congenital or acquired thrombophilia Stroke (< 1 month) Elective arthroplasty Hip, pelvis, or leg fracture Acute spinal cord injury (< 1 month) Prophylaxis Regimen: Total Risk Factor Score Risk Level Prophylaxis Regimen 0-1 Low Early ambulation 2 Moderate Order ONE of the following: *Sequential Compression Device (SCD) *Heparin 5000 units SQ BID 3-4 Higher Order ONE of the following medications: *Heparin 5000 units SQ TID *Enoxaparin/Lovenox 40 mg SQ daily (WT < 150 kg, CrCl > 30 mL/min) *Enoxaparin/Lovenox 30 mg SQ daily (WT < 150 kg, CrCl > 10-29 mL/min) *Enoxaparin/Lovenox 30 mg SQ BID (WT < 150 kg, CrCl > 30 mL/min) AND/OR *Sequential Compression Device (SCD) 5 or more Highest Order ONE of the following medications: *Heparin 5000 units SQ TID (Preferred with Epidurals) *Enoxaparin/Lovenox 40 mg SQ daily (WT < 150 kg, CrCl > 30 mL/min) *Enoxaparin/Lovenox 30 mg SQ daily (WT < 150 kg, CrCl > 10-29 mL/min) *Enoxaparin/Lovenox 30 mg SQ BID (WT < 150 kg, CrCl > 30 mL/min) AND *Sequential Compression Device (SCD) Assessment and Plan - Plan 42-year-old female admitted secondary to SVT with chest pain Chest pain No prior cardiac history etiology suspect to be related to SVT evaluate for ACS Follow cardiac enzymes Follow on telemetry Stress test SVT Spine well to diltiazem Consider discharge on metoprolol if cardiac workup negative Hypertension Continue baseline treatment Follow blood pressures Adjust treatments as needed Anemia Repeat H&H History of asthma Follow clinically for any evidence of exacerbation Start albuterol as needed if exacerbation occurs H&P: Quality - VTE Deep Vein Thrombosis/Pulmonary Embolism Present on Admission: No
--- NOTE | 2018-01-19 13:16 | NM ---
EXAM DATE: 01/19/2018 12:55 PM EDT AGE/SEX: 42 years / Female INDICATIONS:Angina. . Chest pain with dyspnea. CLINICAL DATA: This is the patient's initial encounter. Patient reports that signs and symptoms have been present for 2 days and indicates a pain score of 6/10. MEDICAL/SURGICAL HISTORY: Hypertension. Anemia. Asthma. Tubal ligation. Back surgery. COMPARISON: [facility] – [place], MYOCARDIAL PERF PHARM SPECT, 01/09/2017. . DOSE: 8.7 mCi Tc 99m Myoview at rest 26.3 mCi [id number] at stress 0.4 mg Lexiscan STRESS SYMPTOMS: Shortness of breath and heart racing. EJECTION FRACTION: 61 % TECHNIQUE: The patient underwent pharmacologic stress with infusion of prescribed dose. Continuous ECG tracing was monitored during stress. Gated SPECT imaging was performed after stress and conventi onal SPECT imaging was performed at rest. The examination was performed on a SPECT/CT scanner, both attenuation and non-corrected datasets were reviewed. FINDINGS: Distribution: The maximum perfused segment at stress is in the mid posterior and inferoseptal aldana wall. Perfusion Study: The pattern of perfusion at stress is within normal limits. Gated Study: There are intact wall motion and wall thickening without hypokinetic or dyskinetic segm ents. The ejection fraction is calculated at 61%. RISK CATEGORY: Low (<1% Annual Motality Rate) CONCLUSION: 1. No significant areas of ischemia are identified. Electronically signed by: Stewart Ashton MD 01/19/2018 1:15 PM EDT
[2018-01-19 13:37] LABS: Baso % (Auto) 0.6 % (0.0-2.0); Eos # (Auto) 0.2 th/mm3 (0.0-0.4); Hematocrit 29.4 % (35.0-46.0); Hemoglobin 9.3 gm/dL (11.6-15.3); Lymph # (Auto) 1.6 th/mm3 (1.0-4.8); Lymph % (Auto) 22.1 % (9.0-44.0); Mean Corpuscular HGB Conc 31.8 % (32.0-36.0); Mean Corpuscular Hemoglobin 21.6 pg (27.0-34.0); Mean Platelet Volume 9.1 fL (7.0-11.0); Mono # (Auto) 0.5 th/mm3 (0.0-0.9); Mono % (Auto) 7.3 % (0.0-8.0); Neut # (Auto) 4.8 th/mm3 (1.8-7.7); Platelet Count 184 th/mm3 (150-450); Red Blood Count 4.32 mil/mm3 (4.00-5.30); Red Cell Distribution Width 23.8 % (11.6-17.2); White Blood Count 7.2 th/mm3 (4.0-11.0)
[2018-01-19 14:07] LABS: Anion Gap 9 meq/L (5-15); Blood Urea Nitrogen 9 mg/dL (7-18); Calcium 7.8 mg/dL (8.5-10.1); Carbon Dioxide 23.5 meq/L (21.0-32.0); Chloride 110 meq/L (98-107); Glomerular Filtration Rate 78 mL/min (>89); Glucose,Random 66 mg/dL (74-106); Magnesium 2.1 mg/dL (1.5-2.5); Potassium 3.6 meq/L (3.5-5.1); Sodium 142 meq/L (136-145)
--- NOTE | 2018-01-19 17:27 | ECG ---
Date Performed: 01/18/2018 Time Performed: 22:11:23 PTAGE: 42 years EKG: SINUS TACHYCARDIA NONSPECIFIC T-WAVE ABNORMALITY When compared to previous tracing, sinus r ate is faster. ABNORMAL RHYTHM ECG PREVIOUS TRACING : 07/29/2017 02.48.13 DOCTOR: Gilberto Aguirre Interpretating Date/Time 01/19/2018 17:25:45
--- NOTE | 2018-01-19 17:27 | ECG ---
Date Performed: 01/19/2018 Time Performed: 00:16:47 PTAGE: 42 years EKG: Sinus rhythm WITH OCCASIONAL SUPRAVENTRICULAR PREMATURE COMPLEXES NONSPECIFIC T-WAVE ABNORMALITY When compared to previous tracing, sinus rate is slower BORDERLINE ECG PREVIOUS TRACING : 01/18/2018 22.11.23 DOCTOR: Gilberto Aguirre Interpretating Date/Time 01/19/2018 17:26:55
--- NOTE | 2018-01-19 17:28 | ECG ---
Date Performed: 01/19/2018 Time Performed: 05:41:05 PTAGE: 42 years EKG: Sinus rhythm POSSIBLE LEFT ATRIAL ENLARGEMENT NONSPECIFIC T-WAVE ABNORMALITY Since previous tracing, no significa nt change noted BORDERLINE ECG PREVIOUS TRACING : 01/19/2018 00.16 DOCTOR: Gilberto Aguirre Interpretating Date/Time 01/19/2018 17:27:17
--- NOTE | 2018-01-19 17:52 | MB ---
cc: Cody Montoya MD DATE: 01/19/2018 REASON FOR CONSULTATION: Supraventricular tachyarrhythmia. HISTORY OF PRESENT ILLNESS: Ms. Campbell is a 42-year-old female with a history of high blood pressure with recurrent episodes of tachyarrhythmia since early age, admitted due to palpations. She was found to have supraventricular tachyarrhythmia. I was consulted for further evaluation and management. The chart was reviewed. The patient was evaluated. ALLERGIES: NONE. SOCIAL HISTORY: The patient smokes. FAMILY HISTORY: Noncontributory to her current medical condition. MEDICATIONS: Currently she is on Cardizem 30 mg 4 times a day. She is on Lovenox subcutaneously. At home, she was on amlodipine 2.5 mg a day, hydrochlorothiazide 12.5 mg a day and lisinopril. REVIEW OF SYSTEMS: Currently, the patient refers no chest pain, no chest discomfort, no palpitations, no fever. PHYSICAL EXAMINATION: GENERAL: Alert, fully oriented. VITAL SIGNS: Blood pressure on evaluation 152/79, pulse 60, respiratory rate 18. LUNGS: Ventilated. CARDIOVASCULAR: S1, S2. No gallop, no murmur. ABDOMEN: Soft. No mass, no bruit. EXTREMITIES: No edema. DIAGNOSTIC DATA: Electrocardiogram on hospitalization showed supraventricular tachyarrhythmia with short VA time. Electrocardiogram shows sinus rhythm and some mild ST changes. LABORATORY DATA: Hemoglobin 9.3, white blood cells 7.2. D-dimer 0.5. Potassium 3.6, creatinine 0.94. ASSESSMENT AND RECOMMENDATIONS: Ms. Campbell has recurrent tachyarrhythmia. She has a very short VA time tachycardia. Atrioventricular umm reentrant tachycardia versus atrial tachycardia is suspected. Electrophysiology study and ablation discussed with her. The risks, the nature and the benefits of the procedure were clearly stated to her. Risks included pneumothorax, cardiac perforation, stroke and even . She understood and agreed to proceed. Electrophysiology study and ablation possibly tomorrow afternoon. MD LUCITA Rasmussen/obdulia , 04:05 PM , 04:17 PM
[2018-01-19 20:31] LABS: Prothrombin Time 10.2 sec (9.8-11.6)
--- NOTE | 2018-01-19 22:49 | MB ---
cc: Kenny Lockett DO DATE: 01/19/2018 REASON FOR CONSULTATION: SVT. HISTORY OF PRESENT ILLNESS: Anton Campbell is a pleasant 42-year-old female who presented to [facility] due to palpitations with chest pain. She states that she has a history of this around a year ago. She notes when she has this, she gets extremely short of breath when walking across the room. On arrival, she was found to be tachycardic and she was given diltiazem and this resolved her tachycardia. As her tachycardia resolved, her chest pain also resolved. She was seen by the primary team and has been scheduled for a stress test this morning. PAST MEDICAL HISTORY: 1. SVT of unknown type. 2. Anemia. 3. Asthma. 4. Hypertension. PAST SURGICAL HISTORY: Back surgery. ALLERGIES: NO KNOWN DRUG ALLERGIES. MEDICATIONS: 1. Lisinopril 20 mg daily. 2. Hydrochlorothiazide 12.5 mg daily. 3. Norvasc 2.5 mg daily. FAMILY HISTORY: Denies premature coronary artery disease or sudden cardiac within the family. SOCIAL HISTORY: The patient smokes cigarettes daily. She denies alcohol or drug abuse. REVIEW OF SYSTEMS: Fourteen systems were reviewed including osteopathic. Pertinent positives and negatives above, otherwise negative. PHYSICAL EXAMINATION: VITAL SIGNS: Temperature 98.3, heart rate 60, blood pressure 149/82, respirations 20, pulse oximetry 94% on room air. GENERAL: The patient appears well, in no acute distress, alert, awake and oriented x 3. HEENT: Extraocular muscles intact. Mucous membranes moist. NECK: Supple. No JVD at 45 degrees. No carotid bruits heard bilaterally. Carotid upstroke is brisk in nature. HEART: Regular rate and rhythm. Positive first and second heart sounds with no noted murmurs, gallops or rubs. LUNGS: Clear to auscultation bilaterally. No wheezes, rales or rhonchi. ABDOMEN: Soft, nontender, nondistended. No organomegaly noted. EXTREMITIES: Show no clubbing, cyanosis or edema. Femoral and distal pulses intact bilaterally. NEUROLOGIC: No focal deficits. SKIN: Warm, dry and intact. OSTEOPATHIC: No kyphoscoliosis, lordosis or paraspinal tender points. LABORATORY DATA: Hemoglobin 9.3, hematocrit 29.4, platelets 184. Potassium 3.6, BUN 9, creatinine 0.94. Troponin negative x 4. TSH 2.53. Electrocardiogram (01/19/2018 at 0016 hours), sinus rhythm with occasional PAC, nonspecific ST-T wave changes. Electrocardiogram (01/18/2018 at 2011 hours), SVT, probable AVNRT versus atypical atrial tachycardia at a rate of 136 beats per minute. IMPRESSION: 1. Supraventricular tachycardia, probable atrioventricular umm reentry tachycardia versus atypical atrial tachycardia. 2. Chest pain, most likely due to supraventricular tachycardia. 3. Hypertension. 4. Tobacco abuse. RECOMMENDATIONS: 1. Ms. Campbell presented with palpitations, chest pain and was found to be in SVT. 2. SVT appears to be AVNRT or possible atypical atrial tachycardia. 3. I have asked Dr. Montoya to see her for consideration of an EP study and possible ablation as necessary. 4. She will continue on her current medications for high blood pressure. 5. I spoke to her for greater than 3 minutes about tobacco cessation. 6. The patient has already been started on a stress test and this will be continued. Ultimately, I think that her chest pain is due to her palpitations. If stress test is positive, then she will need to undergo a cardiac catheterization. 7. Further recommendations will be made based on her hospital course. Thank you for allowing me to see should Anton Campbell. If there are any questions, please do not hesitate to call. DO Anusha Black , 09:55 PM , 10:06 PM
[2018-01-20] MEDS: Sod Chloride 0.9% Inj 1,000 ML IV.CONT SCH (08:14)
[2018-01-20] MEDS: Sodium Chloride 0.9% 2 ML Flush BID IV.FLUSH SCH (08:15)
[2018-01-20] MEDS ORDERED: hydroCHLOROthiazide 25 MG Tablet PO SCH (09:00)
[2018-01-20] MEDS ORDERED: Lisinopril 20 MG Tablet PO SCH (09:00)
[2018-01-20] MEDS ORDERED: amLODIPine 5 MG Tablet PO SCH (09:00)
--- NOTE | 2018-01-20 14:15 | P.PNIM ---
Subjective Interval history: Patient states that she is doing well with no complaints. Had an episode of palpitations last night however no active palpitations this morning. Denies any chest pains. No shortness of breath. Physical Exam Vital signs: Last Vital Signs Temp 98.5 F 01/20/18 12:00 Pulse 65 01/20/18 12:00 Resp 18 01/20/18 12:00 BP 159/96 H 01/20/18 12:00 Pulse Ox 99 01/20/18 12:35 Intake & Output 01/18/18 01/19/18 01/20/18 01/21/18 06:59 06:59 06:59 06:59 Intake Total 1400 / 1400 3205 / 3205 1000 / 1000 Output Total 1400 / 1400 Balance 1400 / 1400 1805 / 1805 1000 / 1000 Weight 72 kg 77.6 kg Narrative: GENERAL: This is a well-nourished, well-developed patient, in no apparent distress. CARDIOVASCULAR: Regular rate and rhythm RESPIRATORY: Clear to auscultation. Breath sounds equal bilaterally. No wheezes , rales, or rhonchi. GASTROINTESTINAL: Abdomen soft, non-tender, nondistended. Normal active bowel sounds MUSCULOSKELETAL: Extremities without clubbing, cyanosis, or edema. NEURO: Alert & Oriented x4 to person, place, time, situation. Moves all ext x4 Results Labs CBC & Chem 7: 01/19/18 13:04 01/19/18 13:04 Procedures Procedures: 01/20 EP study Assessment and Plan Plan 42-year-old female admitted with chest pain SVT Patient placed on telemetry Cardiology Dr. Lockett evaluated the patient and felt she was in AVNRT or possible atypical atrial tachycardia and consult to Dr. Montoya for EP study today. Chest pain likely due to SVT Serial Enzymes are negative, nuclear stress test negative Hypertension, chronic essential Blood pressure controlled on amlodipine, lisinopril, HCTZ DVT prophylaxisbilateral SCDs Discharge Planning: discharged to home when cleared by cardiology likely in the morning Progress Note: Quality VTE Deep Vein Thrombosis/Pulmonary Embolism Present on Admission: No
--- NOTE | 2018-01-20 16:16 | P.PN ---
Subjective Interval history: Feeling ok Physical Exam Vital signs: Vital Signs 01/19/18 16:35 01/19/18 19:00 01/19/18 20:00 Temperature 98.7 F 98.8 F Pulse Rate 61 60 58 L Respiratory Rate 18 18 Blood Pressure 146/81 H 164/84 H Pulse Oximetry 99 98 97 01/19/18 23:49 01/20/18 00:00 01/20/18 04:00 Temperature 99.3 F 98.4 F Pulse Rate 67 56 L 71 Respiratory Rate 18 16 Blood Pressure 148/83 H 165/92 H Pulse Oximetry 97 99 01/20/18 08:00 01/20/18 09:00 01/20/18 12:00 Temperature 98.4 F 98.5 F Pulse Rate 62 61 65 Respiratory Rate 18 18 Blood Pressure 141/86 H 159/96 H Pulse Oximetry 99 100 01/20/18 12:10 01/20/18 12:35 Temperature Pulse Rate 60 Respiratory Rate Blood Pressure Pulse Oximetry 99 Intake & Output 01/19/18 01/20/18 01/20/18 18:59 06:59 18:59 Intake Total 1155 / 1155 2050 / 2050 1000 / 1000 Output Total 1400 / 1400 Balance 1155 / 1155 650 / 650 1000 / 1000 Weight 77.6 kg Intake: IV 15 / 15 1000 / 1000 1000 / 1000 NS Inj 1,000 ML @ 100 mls/hr IV 1000 / 1000 1000 / 1000 .CONT .Q10H KRISHNA Rx#:[id number] NS Inj 250 ML @ 15 mls/hr IV. 15 / 15 SIG ONCE KRISHNA Rx#:[id number] Oral 1050 / 1050 Other 340 / 340 Intake (Blood Product) Amt 400 / 400 Rbc As-3 Leukoreduced Unit 400 / 400 [id number] Autotransfusion Amount 400 / 400 Output: Urine 1400 / 1400 Other: Other Intake Source Saline Solution # Voids 4 Date of Last Bowel Movement 01/18/18 01/19/18 # Bowel Movements 0 - Constitutional no acute distress - Routine HEENT Exam Head: Present: normocephalic Eye: Present: PERRL ENT: Present: mucous membranes moist - Routine Respiratory Exam Present: CTA bilaterally - Routine Cardiovascular Exam Present: RRR, S1, S2 - Routine Abdominal Exam Present: soft - Routine Neurological Exam Present: alert, oriented X3 - Detailed Neurological Exam: Coma Scale Eye Opening: Spontaneous Verbal Response: Oriented Motor Response: Obey commands [place] Coma Scale Total: 15 - Routine Psychiatric Exam Present: normal affect Results - Labs CBC & Chem 7: 01/19/18 13:04 01/19/18 13:04 Laboratory Results - last 24 hr 01/19/18 01/19/18 13:04 19:12 PT 10.2 INR 1.0 Beta HCG, Quant Less than 1 - Procedures 01/20 EP study Assessment and Plan - Assessment (1) SVT (supraventricular tachycardia) Code(s): I47.1 - Supraventricular tachycardia Status: Acute - Plan In sinus rhythm Apparently there is confusion about the time patient had breakfast. case cancel for today Can be DH Will be readmitted on for EPS and ablation Case discussed with patient
== END 2018-01-20 20:19 | disposition home or self-care (01) ==
LOC: NEDA 21:43 → NEPE 21:43 → OBSVTOIN 01-19 01:07 → NEDA 01-19 03:35 → NEPFCDU 01-19 03:47 → N04 01-19 19:06
PROVIDERS: ADMIT Family Medicine; ATTEND Family Medicine